=== PATIENT | female | born 1945 | race Caucasian/White ===

== ENCOUNTER → 2018-04-18 | Outpatient (CLI) | payer MEDICARE ==
[~2018-04-18] VITALS: Ht 157.5 cm; Wt 76.5 kg
[~2018-04-18] MED LIST: ACET-784 PO; AMLO-511 PO; ASPI-556 PO; ATOR20TA86 PO; BUME1TAB17 PO; BUPR2TAB3 SL; CALC-1009 PO; CARB200T6 PO; CARV12 PO; CLON.5 PO; CLON1 PO; DIPH25 PO; DULO30CA2 PO; LEVO75 PO; LISI-661 PO; MIRALAX PO; NIFE10 PO
[2018-04-18 12:53] VITALS: BP 122/86
== END | disposition home or self-care (01) ==
LOC: SRCNTR 11:28
PROVIDERS: ATTEND Hospitalist
DX: E03.9 Hypothyroidism, unspecified (principal); I10 Essential (primary) hypertension; F99 Mental disorder, not otherwise specified; E78.5 Hyperlipidemia, unspecified; I25.10 Atherosclerotic heart disease of native coronary artery without angina pectoris
CPT/HCPCS: G0463

== ENCOUNTER 2018-05-15 11:58 | Emergency (ER) | payer MEDICARE ==
[~2018-05-15] VITALS: Ht 157.5 cm; Wt 70.5 kg
[~2018-05-15 11:58] MED LIST changes: -AMLO-511 PO; -BUPR2TAB3 SL; -CARB200T6 PO; -CLON.5 PO; -LEVO75 PO
[2018-05-15] MEDS ORDERED: BUPR2TAB3 SL (12:57)
[2018-05-15 13:25] LABS: BASOPHILS % (AUTO) 0.6 % (0.0-2.0); EOSINOPHILS % (AUTO) 3.9 % (1.0-6.0); HEMATOCRIT 39.8 % (36-46); HEMOGLOBIN 13.3 g/dL (12.0-16.0); LYMPHOCYTES # (AUTO) 3.9 K/uL (1.0-4.8); LYMPHOCYTES % (AUTO) 36.6 % (22.0-44.0); MEAN CORPUSCULAR HEMOGLOBIN 31.3 pg (26.0-34.0); MEAN CORPUSCULAR HGB CONC 33.5 G/dL (31.0-37.0); MEAN CORPUSCULAR VOLUME 94 fL (80-100); MONOCYTES # (AUTO) 0.6 K/uL (0.1-1.0); MONOCYTES % (AUTO) 5.9 % (2.0-9.0); NEUTROPHILS # (AUTO) 5.7 K/uL (1.8-7.7); PLATELET COUNT (AUTO) 205 K/uL (150-450); RED BLOOD CELL COUNT(AUTO) 4.26 MIL/uL (4.00-5.20); RED CELL DISTRIBUTION WIDTH 15.2 % (11.5-14.5)
[2018-05-15] MEDS ORDERED: ClonazePAM 1 MG TABLET PO ONE ×2 (13:30→20:30)
[2018-05-15 13:35] LABS: ANION GAP 11 mmol/L (8-16); CALCIUM, TOTAL 9.9 mg/dL (8.8-10.5); CARBON DIOXIDE 25 mmol/L (22-29); CHLORIDE 99 mmol/L (98-107); CREATININE 0.99 mg/dL (0.60-1.30); GLOMERULAR FILTR. RATE CALC 55 mL/min (>60); GLUCOSE,RANDOM 125 mg/dL (70-110); POTASSIUM 3.9 mmol/L (3.5-5.1); SODIUM SERUM 135 mmol/L (136-145); UREA NITROGEN, BLOOD 17 mg/dL (7-18)
[2018-05-15 13:36] LABS: SALICYLATE 1.7 mg/dL (2.8-20.0)
[2018-05-15 13:41] LABS: ALANINE AMINOTRANSFERASE 16 U/L (12-78); ALBUMIN 4.3 g/dL (3.4-5.0); ALKALINE PHOSPHATASE 105 U/L (46-116); ASPARTATE AMINOTRANSFERASE 14 U/L (15-37); BILIRUBIN,TOTAL 0.6 mg/dL (0.1-1.0); TOTAL PROTEIN, SERUM 8.7 g/dL (6.4-8.2)
[2018-05-15 13:42] LABS: ACETAMINOPHEN < 2 mcg/mL (10-30)
[2018-05-15 15:53] LABS: GLUCOSE,POINT OF CARE 109 MG/DL (70-110)
[2018-05-15 18:26] LABS: APPEARANCE,URINE CLOUDY (CLEAR); BILIRUBIN,URINE PRELIM. POSITIVE (NEGATIVE); GLUCOSE, URINE (UA) NEGATIVE (NEGATIVE); KETONES,URINE >=80 mg/dL (NEGATIVE); LEUKOCYTE ESTERASE ,URINE SMALL (NEGATIVE); NITRATE,URINE NEGATIVE (NEGATIVE); OCCULT BLOOD,URINE NEGATIVE (NEGATIVE); PROTEIN,URINE TRACE (NEGATIVE); UROBILINOGEN,URINE 0.2 mg/dL (<=1.0)
[2018-05-15 18:32] LABS: BACTERIA,URINE Few /HPF (None Seen); RBC,URINE 0-2 /HPF (0-2); SQUAMOUS EPITHELIAL CELL,UR Many /LPF (None Seen)
[2018-05-15 21:12] VITALS: BP 130/74
== END 2018-05-15 21:16 | disposition home or self-care (01) ==
LOC: EMS 12:01
DX: S00.12XA Contusion of left eyelid and periocular area, initial encounter (principal); F13.20 Sedative, hypnotic or anxiolytic dependence, uncomplicated; E03.9 Hypothyroidism, unspecified; Z88.8 Allergy status to other drugs, medicaments and biological substances; Z91.013 Allergy to seafood; Z79.899 Other long term (current) drug therapy; Z79.82 Long term (current) use of aspirin; W19.XXXA Unspecified fall, initial encounter; Y93.01 Activity, walking, marching and hiking; Y92.89 Other specified places as the place of occurrence of the external cause; Y99.8 Other external cause status
CPT/HCPCS: 36415; 70450; 80053; 81001; 82948; 82962; 84484; 85025; 87086; 93005; 99285; G0480; G0481

== ENCOUNTER 2018-06-07 07:15 | Inpatient (IN) | payer MEDICARE ==
[~2018-06-07] VITALS: Ht 154.9 cm; Wt 73.0 kg
[~2018-06-07 07:15] MED LIST changes: -BUME1TAB17 PO; +BUPR2TAB3 SL; -DIPH25 PO; +LEVO75 PO; -MIRALAX PO; -NIFE10 PO
[2018-06-07] MEDS ORDERED: ClonazePAM 1 MG TABLET PO ONE (08:00)
[2018-06-07 08:12] LABS: BASOPHILS % (AUTO) 0.7 % (0.0-2.0); EOSINOPHILS % (AUTO) 2.8 % (1.0-6.0); HEMOGLOBIN 12.3 g/dL (12.0-16.0); LYMPHOCYTES # (AUTO) 4.5 K/uL (1.0-4.8); LYMPHOCYTES % (AUTO) 45.5 % (22.0-44.0); MEAN CORPUSCULAR HEMOGLOBIN 31.9 pg (26.0-34.0); MEAN CORPUSCULAR HGB CONC 34.2 G/dL (31.0-37.0); MEAN CORPUSCULAR VOLUME 93 fL (80-100); MONOCYTES # (AUTO) 0.5 K/uL (0.1-1.0); MONOCYTES % (AUTO) 5.3 % (2.0-9.0); NEUTROPHILS # (AUTO) 4.6 K/uL (1.8-7.7); NEUTROPHILS % (AUTO) 45.7 % (40.0-70.0); PLATELET COUNT (AUTO) 183 K/uL (150-450); RED BLOOD CELL COUNT(AUTO) 3.86 MIL/uL (4.00-5.20)
[2018-06-07 08:25] LABS: ANION GAP 8 mmol/L (8-16); CALCIUM, TOTAL 8.7 mg/dL (8.8-10.5); CARBON DIOXIDE 26 mmol/L (22-29); CHLORIDE 97 mmol/L (98-107); CREATININE 0.78 mg/dL (0.60-1.30); GLOMERULAR FILTR. RATE CALC > 60 mL/min (>60); GLUCOSE,RANDOM 113 mg/dL (70-110); POTASSIUM 3.9 mmol/L (3.5-5.1); SODIUM SERUM 131 mmol/L (136-145); UREA NITROGEN, BLOOD 8 mg/dL (7-18)
[2018-06-07 08:31] LABS: ALANINE AMINOTRANSFERASE 21 U/L (12-78); ALBUMIN 3.7 g/dL (3.4-5.0); ALKALINE PHOSPHATASE 96 U/L (46-116); ASPARTATE AMINOTRANSFERASE 17 U/L (15-37); BILIRUBIN,TOTAL 0.5 mg/dL (0.1-1.0); TOTAL PROTEIN, SERUM 7.4 g/dL (6.4-8.2)
[2018-06-07] MEDS ORDERED: HALOPERIDOL 5 MG TABLET PO PRN (09:15)
[2018-06-07] MEDS ORDERED: ZOLPIDEM TARTRATE 10 MG TABLET PO PRN (09:15)
[2018-06-07] MEDS ORDERED: LORazepam 2 MG TABLET PO PRN (09:15)
[2018-06-07] MEDS ORDERED: KETOROLAC TROMETHAMINE 60 MG/2 ML VIAL IM ONE (10:30)
[2018-06-07 11:01] LABS: AMPHET/METH SCREEN,URINE NEGATIVE (NEGATIVE); BARBITURATE SCREEN, URINE NEGATIVE (NEGATIVE); BENZODIAZEPINES SCREEN,URINE NEGATIVE (NEGATIVE); CANNABINOID SCREEN,URINE NEGATIVE (NEGATIVE); COCAINE SCREEN,URINE NEGATIVE (NEGATIVE); METHADONE SCREEN, URINE NEGATIVE (NEGATIVE); OPIATE SCREEN,URINE NEGATIVE (NEGATIVE); PHENCYCLIDINE SCREEN,URINE NEGATIVE (NEGATIVE)
[2018-06-07] MEDS ORDERED: PETROLATUM,WHITE 71 GM JELLY TP PRN (12:00)
[2018-06-07] MEDS ORDERED: ALBUTEROL SULFATE HFA 90 MCG/PUFF 8 GM INHALER IH PRN (12:00)
[2018-06-07] MEDS ORDERED: CloNIDine HCL 0.1 MG TABLET PO PRN (12:00)
[2018-06-07] MEDS ORDERED: MAG HYDROX/AL HYDROX/SIMETH ES 30 ML SUSPENSION UDCUP PO PRN (12:00)
[2018-06-07] MEDS ORDERED: MAGNESIUM HYDROXIDE SUSPENSION 30 ML UDCUP PO PRN (12:00)
[2018-06-07] MEDS ORDERED: ONDANSETRON HCL 4 MG TABLET PO PRN (12:00)
[2018-06-07] MEDS ORDERED: DOCUSATE SODIUM 100 MG CAPSULE PO PRN (12:00)
[2018-06-07] MEDS ORDERED: GuaiFENesin/D-METHORPHAN [SUGAR-FREE] 200-20MG/10 ML SYRUP UDCUP PO PRN (12:00)
[2018-06-07] MEDS ORDERED: LOPERAMIDE HCL 2 MG CAPSULE PO PRN (12:00)
[2018-06-07] MEDS ORDERED: NICOTINE 14 MG/24 HOUR PATCH TD PRN (12:00)
[2018-06-07 12:45] VITALS: BP 155/110
[2018-06-07] MEDS: LISINOPRIL 20 MG TABLET PO SCH (13:01)
[2018-06-07] MEDS: CARVEDILOL 12.5 MG TABLET PO SCH ×2 (13:01→16:20)
[2018-06-07] MEDS: DULoxetine HCL 60 MG CAPSULE PO SCH (16:20)
[2018-06-07 16:30] VITALS: BP 127/68
[2018-06-07] MEDS ORDERED: CARVEDILOL 12.5 MG TABLET PO SCH (17:00)
[2018-06-07 20:20] VITALS: BP 130/71
[2018-06-07] MEDS: IBUPROFEN 400 MG TABLET PO PRN (20:21)
[2018-06-07] MEDS: ClonazePAM 1 MG TABLET PO SCH (20:21)
[2018-06-07] MEDS: ATORVASTATIN CALCIUM 20 MG TABLET PO SCH (20:21)
[2018-06-08] MEDS: LEVOTHYROXINE SODIUM 75 MCG TABLET PO SCH (06:15)
[2018-06-08 06:46] LABS: BASOPHILS % (AUTO) 0.4 % (0.0-2.0); EOSINOPHILS % (AUTO) 2.8 % (1.0-6.0); HEMATOCRIT 36.4 % (36-46); HEMOGLOBIN 12.1 g/dL (12.0-16.0); LYMPHOCYTES # (AUTO) 5.4 K/uL (1.0-4.8); LYMPHOCYTES % (AUTO) 42.1 % (22.0-44.0); MEAN CORPUSCULAR HEMOGLOBIN 30.9 pg (26.0-34.0); MEAN CORPUSCULAR HGB CONC 33.1 G/dL (31.0-37.0); MEAN CORPUSCULAR VOLUME 93 fL (80-100); MONOCYTES # (AUTO) 0.8 K/uL (0.1-1.0); NEUTROPHILS # (AUTO) 6.2 K/uL (1.8-7.7); NEUTROPHILS % (AUTO) 48.7 % (40.0-70.0); PLATELET COUNT (AUTO) 190 K/uL (150-450); RED CELL DISTRIBUTION WIDTH 15.1 % (11.5-14.5)
[2018-06-08 07:12] LABS: ALANINE AMINOTRANSFERASE 19 U/L (12-78); ALBUMIN 3.5 g/dL (3.4-5.0); ALKALINE PHOSPHATASE 95 U/L (46-116); ANION GAP 6 mmol/L (8-16); ASPARTATE AMINOTRANSFERASE 15 U/L (15-37); BILIRUBIN,TOTAL 0.4 mg/dL (0.1-1.0); CALCIUM, TOTAL 8.8 mg/dL (8.8-10.5); CARBON DIOXIDE 28 mmol/L (22-29); CHLORIDE 98 mmol/L (98-107); CHOL/HDL RATIO 2.6 (3.9-5.7); CHOLESTEROL 141 mg/dL (131-200); CREATININE 0.84 mg/dL (0.60-1.30); FREE T4 (FREE THYROXINE) 0.93 ng/dL (0.76-1.46); GLUCOSE,RANDOM 108 mg/dL (70-110); HDL CHOLESTEROL 54 mg/dL (40-60); HEMOGLOBIN A1C 5.7 % (4.5-6.2); LDL CHOL (CALC.) 67 mg/dL (0-130); SODIUM SERUM 132 mmol/L (136-145); THYROID STIMULATING HORMONE 2.31 uIU/mL (0.36-3.74); TOTAL PROTEIN, SERUM 7.2 g/dL (6.4-8.2); TRIGLYCERIDES 100 mg/dL (15-150); UREA NITROGEN, BLOOD 12 mg/dL (7-18)
[2018-06-08 07:14] LABS: GLOMERULAR FILTR. RATE CALC > 60 mL/min (>60)
[2018-06-08] MEDS: DULoxetine HCL 60 MG CAPSULE PO SCH (08:42)
[2018-06-08] MEDS: ClonazePAM 1 MG TABLET PO SCH ×2 (08:42→21:05)
[2018-06-08] MEDS: ASPIRIN 81 MG CHEWABLE TABLET PO SCH (08:42)
[2018-06-08] MEDS: LISINOPRIL 20 MG TABLET PO SCH (08:42)
[2018-06-08] MEDS: CARVEDILOL 12.5 MG TABLET PO SCH ×2 (08:43→17:30)
[2018-06-08] MEDS ORDERED: LISINOPRIL 20 MG TABLET PO SCH (09:00)
[2018-06-08] MEDS: IBUPROFEN 400 MG TABLET PO PRN ×2 (10:59→21:05)
[2018-06-08 11:01] VITALS: BP 159/100
[2018-06-08] MEDS: AmLODIPine BESYLATE 5 MG TABLET PO SCH (15:18)
[2018-06-08] MEDS: CarBAMazepine 200 MG TABLET PO SCH (17:30)
[2018-06-08] MEDS: CALCIUM OYSTER SHELL 250 MG-VIT D3 125 UNITS TABLET PO SCH (17:30)
[2018-06-08 19:50] VITALS: BP 143/89
[2018-06-08 21:05] VITALS: BP 130/88
[2018-06-08] MEDS: ATORVASTATIN CALCIUM 20 MG TABLET PO SCH (21:05)
[2018-06-09] MEDS: LEVOTHYROXINE SODIUM 75 MCG TABLET PO SCH (06:53)
[2018-06-09 07:20] VITALS: BP 147/104
[2018-06-09] MEDS: DULoxetine HCL 60 MG CAPSULE PO SCH (08:23)
[2018-06-09] MEDS: ClonazePAM 1 MG TABLET PO SCH ×2 (08:24→20:23)
[2018-06-09] MEDS: CALCIUM OYSTER SHELL 250 MG-VIT D3 125 UNITS TABLET PO SCH ×2 (08:24→16:28)
[2018-06-09] MEDS: AmLODIPine BESYLATE 5 MG TABLET PO SCH (08:24)
[2018-06-09] MEDS: CarBAMazepine 200 MG TABLET PO SCH ×2 (08:24→16:28)
[2018-06-09] MEDS: ASPIRIN 81 MG CHEWABLE TABLET PO SCH (08:24)
[2018-06-09] MEDS: LISINOPRIL 20 MG TABLET PO SCH (08:24)
[2018-06-09] MEDS: CARVEDILOL 12.5 MG TABLET PO SCH ×2 (08:24→16:28)
[2018-06-09 09:54] VITALS: BP 153/91
[2018-06-09 11:20] VITALS: BP 131/83
[2018-06-09 15:13] VITALS: BP 138/90
[2018-06-09] MEDS: LOPERAMIDE HCL 2 MG CAPSULE PO PRN (16:30)
[2018-06-09 20:24] VITALS: BP 145/88
[2018-06-09] MEDS: IBUPROFEN 400 MG TABLET PO PRN (20:24)
[2018-06-09] MEDS: ATORVASTATIN CALCIUM 20 MG TABLET PO SCH (20:24)
[2018-06-10] MEDS: LEVOTHYROXINE SODIUM 75 MCG TABLET PO SCH (06:54)
[2018-06-10 07:17] LABS: ANION GAP 10 mmol/L (8-16); CALCIUM, TOTAL 8.7 mg/dL (8.8-10.5); CARBON DIOXIDE 26 mmol/L (22-29); CHLORIDE 101 mmol/L (98-107); CREATININE 0.78 mg/dL (0.60-1.30); GLUCOSE,RANDOM 110 mg/dL (70-110); POTASSIUM 4.1 mmol/L (3.5-5.1); SODIUM SERUM 137 mmol/L (136-145); UREA NITROGEN, BLOOD 16 mg/dL (7-18)
[2018-06-10 07:22] LABS: GLOMERULAR FILTR. RATE CALC > 60 mL/min (>60)
[2018-06-10 09:06] VITALS: BP 152/93
[2018-06-10] MEDS: CarBAMazepine 200 MG TABLET PO SCH ×2 (09:28→16:40)
[2018-06-10] MEDS: AmLODIPine BESYLATE 5 MG TABLET PO SCH (09:28)
[2018-06-10] MEDS: DULoxetine HCL 60 MG CAPSULE PO SCH (09:29)
[2018-06-10] MEDS: LISINOPRIL 20 MG TABLET PO SCH (09:29)
[2018-06-10] MEDS: CARVEDILOL 12.5 MG TABLET PO SCH ×2 (09:29→16:40)
[2018-06-10] MEDS: ASPIRIN 81 MG CHEWABLE TABLET PO SCH (09:29)
[2018-06-10] MEDS: ClonazePAM 1 MG TABLET PO SCH ×2 (09:29→20:09)
[2018-06-10] MEDS: CALCIUM OYSTER SHELL 250 MG-VIT D3 125 UNITS TABLET PO SCH ×2 (09:30→16:40)
[2018-06-10] MEDS: ACETAMINOPHEN 325 MG TABLET PO PRN (09:32)
[2018-06-10 09:34] VITALS: BP 134/74
[2018-06-10 10:35] VITALS: BP 130/69
[2018-06-10 16:30] VITALS: BP 132/97
[2018-06-10] MEDS: IBUPROFEN 400 MG TABLET PO PRN (16:41)
[2018-06-10] MEDS: ATORVASTATIN CALCIUM 20 MG TABLET PO SCH (20:09)
[2018-06-10 22:00] VITALS: BP 130/85
[2018-06-10] MEDS: TraMADol HCL 50 MG TABLET PO PRN (22:08)
[2018-06-11 02:40] VITALS: BP 132/86
[2018-06-11] MEDS: ACETAMINOPHEN 325 MG TABLET PO PRN (02:40)
[2018-06-11] MEDS: TraMADol HCL 50 MG TABLET PO PRN ×2 (05:36→11:45)
[2018-06-11] MEDS: LEVOTHYROXINE SODIUM 75 MCG TABLET PO SCH (06:39)
[2018-06-11 08:00] VITALS: BP 158/102
[2018-06-11] MEDS: DULoxetine HCL 60 MG CAPSULE PO SCH (09:25)
[2018-06-11] MEDS: ClonazePAM 1 MG TABLET PO SCH ×2 (09:25→20:07)
[2018-06-11] MEDS: LISINOPRIL 20 MG TABLET PO SCH (09:25)
[2018-06-11] MEDS: ASPIRIN 81 MG CHEWABLE TABLET PO SCH (09:25)
[2018-06-11] MEDS: AmLODIPine BESYLATE 5 MG TABLET PO SCH (09:25)
[2018-06-11] MEDS: CARVEDILOL 12.5 MG TABLET PO SCH ×2 (09:26→16:39)
[2018-06-11] MEDS: CALCIUM OYSTER SHELL 250 MG-VIT D3 125 UNITS TABLET PO SCH ×2 (09:26→16:39)
[2018-06-11] MEDS: CarBAMazepine 200 MG TABLET PO SCH ×2 (09:26→16:39)
[2018-06-11 10:45] VITALS: BP 139/90
[2018-06-11 11:45] VITALS: BP 140/88
[2018-06-11 16:52] VITALS: BP 135/77
[2018-06-11] MEDS: ATORVASTATIN CALCIUM 20 MG TABLET PO SCH (20:07)
[2018-06-12 00:52] VITALS: BP 112/85
[2018-06-12] MEDS: TraMADol HCL 50 MG TABLET PO PRN ×3 (00:52→17:04)
[2018-06-12] MEDS: LEVOTHYROXINE SODIUM 75 MCG TABLET PO SCH (06:55)
[2018-06-12] MEDS: AmLODIPine BESYLATE 5 MG TABLET PO SCH (09:10)
[2018-06-12] MEDS: ASPIRIN 81 MG CHEWABLE TABLET PO SCH (09:10)
[2018-06-12] MEDS: ClonazePAM 1 MG TABLET PO SCH ×3 (09:10→20:12)
[2018-06-12] MEDS: DULoxetine HCL 60 MG CAPSULE PO SCH (09:10)
[2018-06-12] MEDS: CarBAMazepine 200 MG TABLET PO SCH ×2 (09:10→17:03)
[2018-06-12] MEDS: CALCIUM OYSTER SHELL 250 MG-VIT D3 125 UNITS TABLET PO SCH ×2 (09:11→17:03)
[2018-06-12] MEDS: LISINOPRIL 20 MG TABLET PO SCH (09:11)
[2018-06-12] MEDS: CARVEDILOL 12.5 MG TABLET PO SCH ×2 (09:11→17:03)
[2018-06-12 09:13] VITALS: BP 141/97
[2018-06-12 10:13] VITALS: BP 116/87
[2018-06-12] MEDS: LOPERAMIDE HCL 2 MG CAPSULE PO PRN (15:14)
[2018-06-12 17:04] VITALS: BP 129/81
[2018-06-12] MEDS: ATORVASTATIN CALCIUM 20 MG TABLET PO SCH (20:12)
[2018-06-13] VITALS (7 sets, daily range): BP systolic 102–137; BP diastolic 68–93
[2018-06-13] MEDS: TraMADol HCL 50 MG TABLET PO PRN ×3 (02:47→16:25)
[2018-06-13] MEDS: LEVOTHYROXINE SODIUM 75 MCG TABLET PO SCH (07:03)
[2018-06-13 07:04] LABS: BASOPHILS % (AUTO) 0.5 % (0.0-2.0); EOSINOPHILS % (AUTO) 3.7 % (1.0-6.0); HEMATOCRIT 37.3 % (36-46); HEMOGLOBIN 12.5 g/dL (12.0-16.0); LYMPHOCYTES # (AUTO) 5.6 K/uL (1.0-4.8); LYMPHOCYTES % (AUTO) 48.6 % (22.0-44.0); MEAN CORPUSCULAR HEMOGLOBIN 31.7 pg (26.0-34.0); MEAN CORPUSCULAR HGB CONC 33.6 G/dL (31.0-37.0); MEAN CORPUSCULAR VOLUME 94 fL (80-100); MONOCYTES # (AUTO) 0.9 K/uL (0.1-1.0); MONOCYTES % (AUTO) 7.4 % (2.0-9.0); NEUTROPHILS # (AUTO) 4.6 K/uL (1.8-7.7); NEUTROPHILS % (AUTO) 39.8 % (40.0-70.0); PLATELET COUNT (AUTO) 209 K/uL (150-450); RED BLOOD CELL COUNT(AUTO) 3.95 MIL/uL (4.00-5.20); RED CELL DISTRIBUTION WIDTH 15.5 % (11.5-14.5)
[2018-06-13] MEDS: ClonazePAM 1 MG TABLET PO SCH ×3 (09:00→20:05)
[2018-06-13] MEDS: ASPIRIN 81 MG CHEWABLE TABLET PO SCH (09:00)
[2018-06-13] MEDS: CarBAMazepine 200 MG TABLET PO SCH ×2 (09:00→16:22)
[2018-06-13] MEDS: DULoxetine HCL 60 MG CAPSULE PO SCH (09:00)
[2018-06-13] MEDS: CARVEDILOL 12.5 MG TABLET PO SCH ×2 (09:01→16:22)
[2018-06-13] MEDS: AmLODIPine BESYLATE 5 MG TABLET PO SCH (09:01)
[2018-06-13] MEDS: CALCIUM OYSTER SHELL 250 MG-VIT D3 125 UNITS TABLET PO SCH ×2 (09:01→16:22)
[2018-06-13] MEDS: LISINOPRIL 20 MG TABLET PO SCH (09:01)
[2018-06-13] MEDS: IBUPROFEN 400 MG TABLET PO PRN (15:06)
[2018-06-13] MEDS: ATORVASTATIN CALCIUM 20 MG TABLET PO SCH (20:05)
[2018-06-14] VITALS (8 sets, daily range): BP systolic 101–141; BP diastolic 66–95
[2018-06-14] MEDS: TraMADol HCL 50 MG TABLET PO PRN ×3 (01:21→14:27)
[2018-06-14] MEDS: IBUPROFEN 400 MG TABLET PO PRN ×2 (05:43→12:55)
[2018-06-14] MEDS: LEVOTHYROXINE SODIUM 75 MCG TABLET PO SCH (06:57)
[2018-06-14] MEDS: LISINOPRIL 20 MG TABLET PO SCH (08:18)
[2018-06-14] MEDS: DULoxetine HCL 60 MG CAPSULE PO SCH (08:18)
[2018-06-14] MEDS: ClonazePAM 1 MG TABLET PO SCH (08:18)
[2018-06-14] MEDS: CALCIUM OYSTER SHELL 250 MG-VIT D3 125 UNITS TABLET PO SCH (08:18)
[2018-06-14] MEDS: CARVEDILOL 12.5 MG TABLET PO SCH (08:18)
[2018-06-14] MEDS: AmLODIPine BESYLATE 5 MG TABLET PO SCH (08:18)
[2018-06-14] MEDS: ASPIRIN 81 MG CHEWABLE TABLET PO SCH (08:18)
[2018-06-14] MEDS: CarBAMazepine 200 MG TABLET PO SCH (08:18)
[2018-06-14] MEDS ORDERED: AMLO-511 PO (10:51)
[2018-06-14] MEDS ORDERED: CARB200T6 PO (10:51)
== END 2018-06-14 15:30 | disposition home or self-care (01) | DRG 885 ==
LOC: EMS 07:15 → 3EI 10:19
DX: F33.2 Major depressive disorder, recurrent severe without psychotic features (principal); R45.851 Suicidal ideations; E87.1 Hypo-osmolality and hyponatremia; D72.829 Elevated white blood cell count, unspecified; E03.9 Hypothyroidism, unspecified; E78.5 Hyperlipidemia, unspecified; G40.909 Epilepsy, unspecified, not intractable, without status epilepticus; G89.29 Other chronic pain; M54.9 Dorsalgia, unspecified; R19.7 Diarrhea, unspecified; I10 Essential (primary) hypertension; M41.9 Scoliosis, unspecified; M81.0 Age-related osteoporosis without current pathological fracture; Z87.891 Personal history of nicotine dependence; Z91.013 Allergy to seafood; Z79.899 Other long term (current) drug therapy; Z79.890 Hormone replacement therapy; Z91.5 Personal history of self-harm
CPT/HCPCS: 83036; 84436; 84439; 84443; 87045; 87081; 87427; G0480; J1885

== ENCOUNTER 2018-07-19 09:17 | Emergency (ER) | payer BC, MEDICARE ==
[~2018-07-19] VITALS: Ht 162.6 cm; Wt 72.7 kg
[~2018-07-19 09:17] MED LIST changes: -ACET-784 PO; +AMLO-511 PO; -BUPR2TAB3 SL; +CARB200T6 PO
[2018-07-19] MEDS ORDERED: KETOROLAC TROMETHAMINE 60 MG/2 ML VIAL IM ONE (10:30)
[2018-07-19] MEDS ORDERED: DULO60CA44 PO (12:05)
[2018-07-19] MEDS ORDERED: LISI-662 PO (12:05)
[2018-07-19] MEDS ORDERED: ClonazePAM 1 MG TABLET PO ONE (12:15)
[2018-07-19 12:47] VITALS: BP 156/89
== END 2018-07-19 13:12 | disposition home or self-care (01) ==
LOC: EMS 09:18
DX: R51 Headache (principal); T42.4X5A Adverse effect of benzodiazepines, initial encounter; E78.00 Pure hypercholesterolemia, unspecified; I10 Essential (primary) hypertension; E03.9 Hypothyroidism, unspecified; F32.9 Major depressive disorder, single episode, unspecified; Z91.013 Allergy to seafood; Z79.82 Long term (current) use of aspirin; Z79.899 Other long term (current) drug therapy; Z87.891 Personal history of nicotine dependence; Y92.89 Other specified places as the place of occurrence of the external cause
CPT/HCPCS: 96372; 99283; J1885

== ENCOUNTER → 2018-07-25 | Outpatient (CLI) | payer MEDICARE ==
[~2018-07-25] VITALS: Ht 152.4 cm; Wt 74.0 kg
[~2018-07-25] MED LIST changes: +ACET-784 PO; +CLON.5 PO; +DULO60CA44 PO; +IBUP-2354 PO; -LISI-661 PO; +LISI-662 PO
[2018-07-25 08:29] VITALS: BP 132/88
== END | disposition home or self-care (01) ==
LOC: SRCNTR 08:23
PROVIDERS: ATTEND Hospitalist
DX: I10 Essential (primary) hypertension (principal); E78.5 Hyperlipidemia, unspecified; G89.4 Chronic pain syndrome; E03.9 Hypothyroidism, unspecified; I25.10 Atherosclerotic heart disease of native coronary artery without angina pectoris; G40.909 Epilepsy, unspecified, not intractable, without status epilepticus; M41.9 Scoliosis, unspecified; M81.0 Age-related osteoporosis without current pathological fracture; F99 Mental disorder, not otherwise specified; R53.1 Weakness
CPT/HCPCS: G0463

== ENCOUNTER 2018-08-20 17:19 | Emergency (ER) | payer MEDICARE ==
[~2018-08-20] VITALS: Ht 154.9 cm; Wt 72.7 kg
[~2018-08-20 17:19] MED LIST changes: -AMLO-511 PO; -CLON.5 PO; -DULO60CA44 PO
[2018-08-20] MEDS ORDERED: LORazepam 2 MG TABLET PO ONE (17:45)
[2018-08-20] MEDS ORDERED: ACETAMINOPHEN 500 MG TABLET PO ONE (18:00)
[2018-08-20 18:04] LABS: BASOPHILS % (AUTO) 1.1 % (0.0-2.0); EOSINOPHILS % (AUTO) 1.4 % (1.0-6.0); HEMATOCRIT 38.2 % (36-46); LYMPHOCYTES # (AUTO) 5.9 K/uL (1.0-4.8); LYMPHOCYTES % (AUTO) 46.9 % (22.0-44.0); MEAN CORPUSCULAR HEMOGLOBIN 32.1 pg (26.0-34.0); MEAN CORPUSCULAR VOLUME 94 fL (80-100); MONOCYTES # (AUTO) 0.7 K/uL (0.1-1.0); MONOCYTES % (AUTO) 5.4 % (2.0-9.0); NEUTROPHILS # (AUTO) 5.6 K/uL (1.8-7.7); NEUTROPHILS % (AUTO) 45.2 % (40.0-70.0); PLATELET COUNT (AUTO) 211 K/uL (150-450); RED BLOOD CELL COUNT(AUTO) 4.05 MIL/uL (4.00-5.20); RED CELL DISTRIBUTION WIDTH 12.8 % (11.5-14.5)
[2018-08-20 18:36] LABS: ANION GAP 13 mmol/L (8-16); CALCIUM, TOTAL 9.5 mg/dL (8.8-10.5); CARBON DIOXIDE 20 mmol/L (22-29); CHLORIDE 97 mmol/L (98-107); CREATININE 0.86 mg/dL (0.60-1.30); GLUCOSE,RANDOM 116 mg/dL (70-110); POTASSIUM 3.2 mmol/L (3.5-5.1); SODIUM SERUM 130 mmol/L (136-145); UREA NITROGEN, BLOOD 17 mg/dL (7-18)
[2018-08-20 18:37] LABS: GLOMERULAR FILTR. RATE CALC > 60 mL/min (>60)
[2018-08-20 18:42] LABS: ALANINE AMINOTRANSFERASE 13 U/L (12-78); ALBUMIN 3.8 g/dL (3.4-5.0); ALKALINE PHOSPHATASE 99 U/L (46-116); ASPARTATE AMINOTRANSFERASE 18 U/L (15-37); BILIRUBIN,TOTAL 0.5 mg/dL (0.1-1.0); CARBAMAZEPINE (TEGRETOL) 11.6 mcg/mL (4.0-12.0); TOTAL PROTEIN, SERUM 7.5 g/dL (6.4-8.2)
[2018-08-20 19:18] VITALS: BP 165/100
[2018-08-22] MEDS ORDERED: LISI-662 PO (09:21)
[2018-08-22] MEDS ORDERED: DULO60CA44 PO (09:21)
[2018-08-22] MEDS ORDERED: BUME1TAB17 PO (09:21)
[2018-08-22] MEDS ORDERED: NIFE10 PO (09:21)
== END 2018-08-20 19:58 | disposition home or self-care (01) ==
LOC: EMS 17:21
DX: F41.9 Anxiety disorder, unspecified (principal); R07.89 Other chest pain; R25.1 Tremor, unspecified; F13.20 Sedative, hypnotic or anxiolytic dependence, uncomplicated; F11.90 Opioid use, unspecified, uncomplicated; I25.10 Atherosclerotic heart disease of native coronary artery without angina pectoris; F32.9 Major depressive disorder, single episode, unspecified; E78.00 Pure hypercholesterolemia, unspecified; I10 Essential (primary) hypertension; E03.9 Hypothyroidism, unspecified; G89.29 Other chronic pain; Z87.891 Personal history of nicotine dependence; Z79.82 Long term (current) use of aspirin; Z88.8 Allergy status to other drugs, medicaments and biological substances; Z91.013 Allergy to seafood; Z79.899 Other long term (current) drug therapy
CPT/HCPCS: 93005

== ENCOUNTER → 2018-08-22 | Outpatient (CLI) | payer MEDICARE ==
[~2018-08-22] VITALS: Ht 154.9 cm; Wt 74.5 kg
[~2018-08-22] MED LIST changes: +BUME1TAB17 PO; +DULO60CA44 PO; +NIFE10 PO
[2018-08-22 09:22] VITALS: BP 99/65
== END | disposition home or self-care (01) ==
LOC: SRCNTR 09:05
PROVIDERS: ATTEND Hospitalist
DX: I10 Essential (primary) hypertension (principal); E03.9 Hypothyroidism, unspecified; G89.4 Chronic pain syndrome; F41.1 Generalized anxiety disorder
CPT/HCPCS: G0463

== ENCOUNTER → 2018-09-19 | Outpatient (CLI) | payer MEDICARE ==
[~2018-09-19] VITALS: Ht 154.9 cm; Wt 75.0 kg
[~2018-09-19] MED LIST changes: -ACET-784 PO; -DULO30CA2 PO
[2018-09-19 08:27] VITALS: BP 134/97
== END | disposition home or self-care (01) ==
LOC: SRCNTR 08:26
PROVIDERS: ATTEND Hospitalist
DX: I25.10 Atherosclerotic heart disease of native coronary artery without angina pectoris (principal); I10 Essential (primary) hypertension; E78.5 Hyperlipidemia, unspecified; E03.9 Hypothyroidism, unspecified; G89.4 Chronic pain syndrome; F41.1 Generalized anxiety disorder; R53.1 Weakness; G40.909 Epilepsy, unspecified, not intractable, without status epilepticus
CPT/HCPCS: G0463

== ENCOUNTER 2018-10-11 19:02 | Emergency (ER) | payer MEDICARE ==
[~2018-10-11] VITALS: Ht 165.1 cm; Wt 68.2 kg
[2018-10-11 19:47] LABS: BASOPHILS % (AUTO) 0.6 % (0.0-2.0); EOSINOPHILS % (AUTO) 1.5 % (1.0-6.0); HEMATOCRIT 37.5 % (36-46); HEMOGLOBIN 12.9 g/dL (12.0-16.0); LYMPHOCYTES # (AUTO) 5.1 K/uL (1.0-4.8); LYMPHOCYTES % (AUTO) 38.8 % (22.0-44.0); MEAN CORPUSCULAR HEMOGLOBIN 32.4 pg (26.0-34.0); MEAN CORPUSCULAR HGB CONC 34.3 G/dL (31.0-37.0); MEAN CORPUSCULAR VOLUME 95 fL (80-100); MONOCYTES # (AUTO) 0.8 K/uL (0.1-1.0); MONOCYTES % (AUTO) 6.3 % (2.0-9.0); NEUTROPHILS % (AUTO) 52.8 % (40.0-70.0); PLATELET COUNT (AUTO) 224 K/uL (150-450); RED BLOOD CELL COUNT(AUTO) 3.97 MIL/uL (4.00-5.20); RED CELL DISTRIBUTION WIDTH 13.5 % (11.5-14.5)
[2018-10-11 19:59] LABS: ANION GAP 12 mmol/L (8-16); CALCIUM, TOTAL 9.5 mg/dL (8.8-10.5); CARBON DIOXIDE 22 mmol/L (22-29); CHLORIDE 92 mmol/L (98-107); CREATININE 0.78 mg/dL (0.60-1.30); GLUCOSE,RANDOM 120 mg/dL (70-110); POTASSIUM 3.8 mmol/L (3.5-5.1); SODIUM SERUM 126 mmol/L (136-145); UREA NITROGEN, BLOOD 14 mg/dL (7-18)
[2018-10-11 20:00] LABS: GLOMERULAR FILTR. RATE CALC > 60 mL/min (>60)
[2018-10-11 20:05] LABS: ALANINE AMINOTRANSFERASE 14 U/L (12-78); ALKALINE PHOSPHATASE 88 U/L (46-116); ASPARTATE AMINOTRANSFERASE 15 U/L (15-37); BILIRUBIN,TOTAL 0.7 mg/dL (0.1-1.0); TOTAL PROTEIN, SERUM 7.4 g/dL (6.4-8.2)
[2018-10-11] MEDS ORDERED: CarBAMazepine 200 MG TABLET PO ONE (20:45)
[2018-10-11] MEDS ORDERED: ClonazePAM 1 MG TABLET PO ONE (20:45)
[2018-10-11 22:27] VITALS: BP 123/73
== END 2018-10-11 23:25 | disposition home or self-care (01) ==
LOC: EMS 19:05
DX: G40.909 Epilepsy, unspecified, not intractable, without status epilepticus (principal); E78.00 Pure hypercholesterolemia, unspecified; I25.10 Atherosclerotic heart disease of native coronary artery without angina pectoris; I10 Essential (primary) hypertension; E03.9 Hypothyroidism, unspecified; F41.9 Anxiety disorder, unspecified; F32.9 Major depressive disorder, single episode, unspecified; Z95.5 Presence of coronary angioplasty implant and graft; Z87.891 Personal history of nicotine dependence; Z79.82 Long term (current) use of aspirin; Z91.013 Allergy to seafood; Z91.041 Radiographic dye allergy status; Z88.8 Allergy status to other drugs, medicaments and biological substances; Z79.899 Other long term (current) drug therapy; Z98.890 Other specified postprocedural states
CPT/HCPCS: 36415; 80053; 85025; 99283; G0480

== ENCOUNTER 2018-10-17 08:51 | Emergency (ER) | payer MEDICARE ==
[~2018-10-17] VITALS: Ht 154.9 cm; Wt 77.3 kg
[2018-10-17] MEDS ORDERED: LORazepam 2 MG/ML VIAL IVP ONE (11:15)
[2018-10-17] MEDS ORDERED: SODIUM CHLORIDE 0.9% 1,000 ML IV ONE ×2 (11:15→13:15)
[2018-10-17 11:41] LABS: BASOPHILS % (AUTO) 0.8 % (0.0-2.0); EOSINOPHILS % (AUTO) 2.6 % (1.0-6.0); HEMATOCRIT 38.4 % (36-46); HEMOGLOBIN 12.8 g/dL (12.0-16.0); LYMPHOCYTES # (AUTO) 3.8 K/uL (1.0-4.8); LYMPHOCYTES % (AUTO) 38.8 % (22.0-44.0); MEAN CORPUSCULAR HEMOGLOBIN 32.4 pg (26.0-34.0); MEAN CORPUSCULAR HGB CONC 33.3 G/dL (31.0-37.0); MEAN CORPUSCULAR VOLUME 97 fL (80-100); MONOCYTES # (AUTO) 0.6 K/uL (0.1-1.0); MONOCYTES % (AUTO) 5.8 % (2.0-9.0); NEUTROPHILS # (AUTO) 5.1 K/uL (1.8-7.7); PLATELET COUNT (AUTO) 201 K/uL (150-450); RED BLOOD CELL COUNT(AUTO) 3.95 MIL/uL (4.00-5.20); RED CELL DISTRIBUTION WIDTH 13.5 % (11.5-14.5)
[2018-10-17 11:53] LABS: CALCIUM, TOTAL 9.5 mg/dL (8.8-10.5); CREATININE 0.94 mg/dL (0.60-1.30); POTASSIUM 3.8 mmol/L (3.5-5.1)
[2018-10-17 11:57] LABS: CARBAMAZEPINE (TEGRETOL) 4.5 mcg/mL (4.0-12.0)
[2018-10-17 13:41] LABS: APPEARANCE,URINE CLOUDY (CLEAR); BILIRUBIN,URINE NEGATIVE (NEGATIVE); GLUCOSE, URINE (UA) NEGATIVE (NEGATIVE); KETONES,URINE NEGATIVE (NEGATIVE); LEUKOCYTE ESTERASE ,URINE SMALL (NEGATIVE); NITRATE,URINE NEGATIVE (NEGATIVE); OCCULT BLOOD,URINE NEGATIVE (NEGATIVE); PROTEIN,URINE NEGATIVE (NEGATIVE); UROBILINOGEN,URINE 0.2 mg/dL (<=1.0)
[2018-10-17 13:46] LABS: AMPHET/METH SCREEN,URINE NEGATIVE (NEGATIVE); BARBITURATE SCREEN, URINE NEGATIVE (NEGATIVE); BENZODIAZEPINES SCREEN,URINE NEGATIVE (NEGATIVE); CANNABINOID SCREEN,URINE NEGATIVE (NEGATIVE); COCAINE SCREEN,URINE NEGATIVE (NEGATIVE); METHADONE SCREEN, URINE NEGATIVE (NEGATIVE); OPIATE SCREEN,URINE NEGATIVE (NEGATIVE); PHENCYCLIDINE SCREEN,URINE NEGATIVE (NEGATIVE)
[2018-10-17 13:53] LABS: AMORPHOUS SEDIMENT,UR Few /LPF (None Seen); BACTERIA,URINE Moderate /HPF (None Seen); RBC,URINE 0-2 /HPF (0-2); SQUAMOUS EPITHELIAL CELL,UR Few /LPF (None Seen)
[2018-10-17 15:17] VITALS: BP 150/90
== END 2018-10-17 15:52 | disposition home or self-care (01) ==
LOC: EMS 08:51
DX: R53.1 Weakness (principal); N39.0 Urinary tract infection, site not specified; F41.9 Anxiety disorder, unspecified; E78.00 Pure hypercholesterolemia, unspecified; E03.9 Hypothyroidism, unspecified; I10 Essential (primary) hypertension; I25.10 Atherosclerotic heart disease of native coronary artery without angina pectoris; F13.20 Sedative, hypnotic or anxiolytic dependence, uncomplicated; Z91.013 Allergy to seafood; Z91.041 Radiographic dye allergy status; Z88.8 Allergy status to other drugs, medicaments and biological substances; Z95.5 Presence of coronary angioplasty implant and graft; Z98.890 Other specified postprocedural states
CPT/HCPCS: 36415; 80048; 80156; 80307; 81001; 85025; 87086; 93005; 96374; 99284; J2060; J7030

== ENCOUNTER → 2018-10-17 | Outpatient (CLI) | payer MEDICARE ==
[2018-10-17 09:33] VITALS: BP 54/33
== END | disposition home or self-care (01) ==
LOC: SRCNTR 08:33
PROVIDERS: ATTEND Hospitalist
DX: I95.9 Hypotension, unspecified (principal)
CPT/HCPCS: G0463

== ENCOUNTER 2022-06-29 09:20 | Inpatient (IN) | payer MEDICARE, MEDICAID ==
[~2022-06-29] VITALS: Ht 167.6 cm; Wt 66.1 kg
[~2022-06-29 09:20] MED LIST changes: -BUME1TAB17 PO; +BUME1TAB34 PO; +CLON-595 PO; -CLON1 PO; +DULO-113 PO; -DULO60CA44 PO; -IBUP-2354 PO; +IBUP-45 PO; -LISI-662 PO; +LISI-894 PO; -NIFE10 PO; +NIFE10CA50 PO
[2022-06-29] MEDS ORDERED: LevETIRAcetam 1,000 MG in DEXTROSE 5%-WATER 100 ML IV ONE (09:30)
[2022-06-29 10:33] LABS: BASOPHILS % (AUTO) 0.5 % (0.0-2.0); EOSINOPHILS % (AUTO) 0.2 % (1.0-6.0); HEMATOCRIT 38.4 % (36-46); LYMPHOCYTES # (AUTO) 4.3 K/uL (1.0-4.8); LYMPHOCYTES % (AUTO) 27.6 % (22.0-44.0); MEAN CORPUSCULAR HEMOGLOBIN 32.1 pg (26.0-34.0); MEAN CORPUSCULAR HGB CONC 33.8 G/dL (31.0-37.0); MEAN CORPUSCULAR VOLUME 95 fL (80-100); MONOCYTES # (AUTO) 0.9 K/uL (0.1-1.0); MONOCYTES % (AUTO) 5.7 % (2.0-9.0); NEUTROPHILS # (AUTO) 10.4 K/uL (1.8-7.7); PLATELET COUNT (AUTO) 214 K/uL (150-450); RED BLOOD CELL COUNT(AUTO) 4.05 MIL/uL (4.00-5.20); RED CELL DISTRIBUTION WIDTH 13.8 % (11.5-14.5)
[2022-06-29 10:54] LABS: B-TYPE NATRIURETIC PEPTIDE 54 pg/mL (0-100)
[2022-06-29 11:28] LABS: ALANINE AMINOTRANSFERASE 17 U/L (12-78); ALBUMIN 4.1 g/dL (3.4-5.0); ALKALINE PHOSPHATASE 124 U/L (46-116); ANION GAP 10 mmol/L (8-16); ASPARTATE AMINOTRANSFERASE 24 U/L (15-37); BILIRUBIN,TOTAL 0.9 mg/dL (0.1-1.0); CALCIUM, TOTAL 9.8 mg/dL (8.8-10.5); CARBON DIOXIDE 26 mmol/L (22-29); CHLORIDE 97 mmol/L (98-107); CREATINE KINASE, TOTAL ONLY 296 U/L (26-192); GLUCOSE,RANDOM 128 mg/dL (70-110); SODIUM SERUM 133 mmol/L (136-145); TOTAL PROTEIN, SERUM 8.3 g/dL (6.4-8.2); UREA NITROGEN, BLOOD 25 mg/dL (7-18)
[2022-06-29 11:29] LABS: GLOMERULAR FILTR. RATE CALC 43 mL/min (>60); POTASSIUM 2.8 mmol/L (3.5-5.1)
[2022-06-29 11:33] LABS: APPEARANCE,URINE HAZY (CLEAR); BILIRUBIN,URINE NEGATIVE (NEGATIVE); GLUCOSE, URINE (UA) NEGATIVE (NEGATIVE); KETONES,URINE 40-60 mg/dL (NEGATIVE); LEUKOCYTE ESTERASE ,URINE NEGATIVE (NEGATIVE); NITRATE,URINE NEGATIVE (NEGATIVE); OCCULT BLOOD,URINE SMALL (NEGATIVE); PH,URINE 5.5 (5.0-8.0); PROTEIN,URINE 100-200,SEE CONFIRM mg/dL (NEGATIVE); SPECIFIC GRAVITIY, URINE 1.024 (1.003-1.030); UROBILINOGEN,URINE <=1.0 mg/dL (<=1.0)
[2022-06-29 11:53] LABS: BACTERIA,URINE Many /HPF (None Seen); SQUAMOUS EPITHELIAL CELL,UR Few /LPF (None Seen); SULFOSALICYLIC ACID,URINE 2+ (Negative); WBC,URINE None Seen /HPF (0-5)
[2022-06-29] MEDS: POTASSIUM CHLORIDE 20 MEQ ER TABLET PO PRN ×2 (11:59→21:56)
[2022-06-29] MEDS ORDERED: SODIUM CHLORIDE 0.9% 1,000 ML ONE (12:01)
[2022-06-29] MEDS: POTASSIUM CHL 10 MEQ/WATER 50 ML IV PRN ×2 (12:05→13:59)
[2022-06-29 12:11] LABS: PHOSPHORUS 3.3 mg/dL (2.5-4.9)
[2022-06-29] MEDS ORDERED: 0.9% SODIUM CHLORIDE 10 ML SYRINGE IVP PRN ×2 (12:30→13:30)
[2022-06-29] MEDS ORDERED: ACETAMINOPHEN 325 MG TABLET PO PRN (12:30)
[2022-06-29] MEDS ORDERED: ONDANSETRON HCL 4 MG/2 ML VIAL IVP PRN ×2 (12:30→13:30)
[2022-06-29] MEDS ORDERED: IPRATROPIUM BROMIDE 0.5 MG/2.5 ML NEB SOLUTION NEB PRN (13:30)
[2022-06-29] MEDS ORDERED: ALBUTEROL SULFATE 2.5 MG/0.5 ML NEB SOLUTION NEB PRN (13:30)
[2022-06-29] MEDS ORDERED: HydrALAZINE HCL 20 MG/ML VIAL IVP PRN (13:45)
[2022-06-29 14:27] LABS: FREE T4 (FREE THYROXINE) 1.77 ng/dL (0.76-1.46); THYROID STIMULATING HORMONE 3.81 uIU/mL (0.36-3.74)
[2022-06-29 17:31] LABS: CALCIUM, TOTAL 9.5 mg/dL (8.8-10.5); CREATININE 0.91 mg/dL (0.60-1.30); POTASSIUM 3.3 mmol/L (3.5-5.1)
[2022-06-29 20:07] LABS: COVID AG,FIA SOURCE NASAL SWAB
[2022-06-29] MEDS: ATORVASTATIN CALCIUM 20 MG TABLET PO SCH (20:18)
[2022-06-29] MEDS: ACETAMINOPHEN 325 MG TABLET PO PRN ×2 (20:19→21:57)
[2022-06-29] MEDS ORDERED: [UNRECOGNIZED DRUG - OTHER] PO SCH (21:00)
[2022-06-29 21:45] VITALS: BP 145/97
[2022-06-29] MEDS ORDERED: SODIUM CHLORIDE 0.9% 500 ML IV ONE (21:52)
[2022-06-29] MEDS: CARVEDILOL 12.5 MG TABLET PO SCH (21:56)
[2022-06-29] MEDS: LevETIRAcetam 500 MG in DEXTROSE 5%-WATER 100 ML IV SCH (21:57)
[2022-06-30] VITALS (7 sets, daily range): BP systolic 91–143; BP diastolic 57–91
[2022-06-30] MEDS: LEVOTHYROXINE SODIUM 75 MCG TABLET PO SCH (06:22)
[2022-06-30 06:34] LABS: BASOPHILS % (AUTO) 0.9 % (0.0-2.0); EOSINOPHILS % (AUTO) 1.4 % (1.0-6.0); HEMATOCRIT 37.5 % (36-46); HEMOGLOBIN 12.6 g/dL (12.0-16.0); LYMPHOCYTES # (AUTO) 7.4 K/uL (1.0-4.8); LYMPHOCYTES % (AUTO) 50.2 % (22.0-44.0); MEAN CORPUSCULAR HGB CONC 33.7 G/dL (31.0-37.0); MEAN CORPUSCULAR VOLUME 95 fL (80-100); MONOCYTES # (AUTO) 1.1 K/uL (0.1-1.0); MONOCYTES % (AUTO) 7.1 % (2.0-9.0); NEUTROPHILS % (AUTO) 40.4 % (40.0-70.0); PLATELET COUNT (AUTO) 194 K/uL (150-450); RED BLOOD CELL COUNT(AUTO) 3.95 MIL/uL (4.00-5.20)
[2022-06-30] MEDS: ACETAMINOPHEN 325 MG TABLET PO PRN (07:57)
[2022-06-30] MEDS: CARVEDILOL 12.5 MG TABLET PO SCH ×2 (07:58→21:00)
[2022-06-30] MEDS: LISINOPRIL 20 MG TABLET PO SCH (07:58)
[2022-06-30] MEDS: PANTOPRAZOLE SODIUM 40 MG/VIAL IVP SCH (07:58)
[2022-06-30] MEDS: ASPIRIN 81 MG DR TABLET PO SCH (07:59)
[2022-06-30] MEDS: LevETIRAcetam 500 MG in DEXTROSE 5%-WATER 100 ML IV SCH ×2 (10:07→21:08)
[2022-06-30] MEDS ORDERED: NIFE-141 PO (11:52)
[2022-06-30] MEDS ORDERED: ASPI-1444 PO (11:52)
[2022-06-30] MEDS ORDERED: LISI-893 PO (11:52)
[2022-06-30] MEDS: TraMADol HCL 50 MG TABLET PO PRN (12:52)
[2022-06-30] MEDS ORDERED: POTASSIUM CHLORIDE 10% 40 MEQ/30 ML LIQUID UDCUP PO ONE (13:15)
[2022-06-30 15:31] LABS: ALBUMIN 3.7 g/dL (3.4-5.0); BILIRUBIN,TOTAL 0.9 mg/dL (0.1-1.0); CALCIUM, TOTAL 9.6 mg/dL (8.8-10.5); CREATININE 0.94 mg/dL (0.60-1.30); POTASSIUM 4.5 mmol/L (3.5-5.1); TOTAL PROTEIN, SERUM 7.6 g/dL (6.4-8.2)
[2022-06-30] MEDS: ATORVASTATIN CALCIUM 20 MG TABLET PO SCH (21:07)
[2022-07-01 04:33] VITALS: BP 100/72
[2022-07-01] MEDS: LEVOTHYROXINE SODIUM 75 MCG TABLET PO SCH (06:43)
[2022-07-01 06:46] LABS: BASOPHILS % (AUTO) 0.4 % (0.0-2.0); HEMATOCRIT 33.9 % (36-46); HEMOGLOBIN 11.4 g/dL (12.0-16.0); LYMPHOCYTES # (AUTO) 4.9 K/uL (1.0-4.8); LYMPHOCYTES % (AUTO) 39.4 % (22.0-44.0); MEAN CORPUSCULAR HGB CONC 33.5 G/dL (31.0-37.0); MEAN CORPUSCULAR VOLUME 96 fL (80-100); MONOCYTES # (AUTO) 0.9 K/uL (0.1-1.0); MONOCYTES % (AUTO) 7.6 % (2.0-9.0); NEUTROPHILS # (AUTO) 6.3 K/uL (1.8-7.7); NEUTROPHILS % (AUTO) 50.6 % (40.0-70.0); PLATELET COUNT (AUTO) 160 K/uL (150-450); RED BLOOD CELL COUNT(AUTO) 3.55 MIL/uL (4.00-5.20); RED CELL DISTRIBUTION WIDTH 13.7 % (11.5-14.5)
[2022-07-01 07:09] LABS: ALANINE AMINOTRANSFERASE 19 U/L (12-78); ALBUMIN 3.2 g/dL (3.4-5.0); ALKALINE PHOSPHATASE 101 U/L (46-116); ANION GAP 6 mmol/L (8-16); ASPARTATE AMINOTRANSFERASE 21 U/L (15-37); BILIRUBIN,TOTAL 0.5 mg/dL (0.1-1.0); CARBON DIOXIDE 27 mmol/L (22-29); CHLORIDE 102 mmol/L (98-107); GLUCOSE,RANDOM 101 mg/dL (70-110); POTASSIUM 4.3 mmol/L (3.5-5.1); TOTAL PROTEIN, SERUM 6.8 g/dL (6.4-8.2); UREA NITROGEN, BLOOD 14 mg/dL (7-18)
[2022-07-01 07:12] LABS: GLOMERULAR FILTR. RATE CALC > 60 mL/min (>60); SODIUM SERUM 135 mmol/L (136-145)
[2022-07-01 08:00] VITALS: BP 112/63
[2022-07-01] MEDS: CARVEDILOL 12.5 MG TABLET PO SCH (08:57)
[2022-07-01] MEDS: ASPIRIN 81 MG DR TABLET PO SCH (08:57)
[2022-07-01] MEDS: PANTOPRAZOLE SODIUM 40 MG/VIAL IVP SCH (08:57)
[2022-07-01] MEDS: LISINOPRIL 20 MG TABLET PO SCH (09:00)
[2022-07-01] MEDS: LevETIRAcetam 500 MG in DEXTROSE 5%-WATER 100 ML IV SCH ×2 (10:27→22:44)
[2022-07-01] MEDS: TraMADol HCL 50 MG TABLET PO PRN (10:28)
[2022-07-01 11:28] VITALS: BP 112/68
[2022-07-01 16:00] VITALS: BP 119/91
[2022-07-01] MEDS: ClonazePAM 0.5 MG TABLET PO SCH ×2 (16:24→20:16)
[2022-07-01] MEDS: ATORVASTATIN CALCIUM 20 MG TABLET PO SCH (20:16)
[2022-07-01 20:44] VITALS: BP 113/69
[2022-07-01] MEDS: ACETAMINOPHEN 325 MG TABLET PO PRN (22:43)
[2022-07-02] VITALS (7 sets, daily range): BP systolic 94–124; BP diastolic 65–74
[2022-07-02] MEDS: LEVOTHYROXINE SODIUM 75 MCG TABLET PO SCH (06:01)
[2022-07-02 06:26] LABS: BASOPHILS % (AUTO) 0.5 % (0.0-2.0); EOSINOPHILS % (AUTO) 2.3 % (1.0-6.0); HEMATOCRIT 35.9 % (36-46); HEMOGLOBIN 12.1 g/dL (12.0-16.0); LYMPHOCYTES # (AUTO) 5.6 K/uL (1.0-4.8); LYMPHOCYTES % (AUTO) 44.1 % (22.0-44.0); MEAN CORPUSCULAR HEMOGLOBIN 32.2 pg (26.0-34.0); MEAN CORPUSCULAR HGB CONC 33.6 G/dL (31.0-37.0); MEAN CORPUSCULAR VOLUME 96 fL (80-100); MONOCYTES # (AUTO) 0.8 K/uL (0.1-1.0); MONOCYTES % (AUTO) 6.5 % (2.0-9.0); NEUTROPHILS % (AUTO) 46.6 % (40.0-70.0); PLATELET COUNT (AUTO) 153 K/uL (150-450); RED BLOOD CELL COUNT(AUTO) 3.74 MIL/uL (4.00-5.20); RED CELL DISTRIBUTION WIDTH 13.8 % (11.5-14.5)
[2022-07-02 06:47] LABS: ALANINE AMINOTRANSFERASE 17 U/L (12-78); ALBUMIN 3.3 g/dL (3.4-5.0); ALKALINE PHOSPHATASE 112 U/L (46-116); ANION GAP 4 mmol/L (8-16); ASPARTATE AMINOTRANSFERASE 18 U/L (15-37); BILIRUBIN,TOTAL 0.6 mg/dL (0.1-1.0); CALCIUM, TOTAL 9.3 mg/dL (8.8-10.5); CARBON DIOXIDE 30 mmol/L (22-29); CHLORIDE 102 mmol/L (98-107); CREATININE 0.79 mg/dL (0.60-1.30); GLUCOSE,RANDOM 92 mg/dL (70-110); POTASSIUM 4.1 mmol/L (3.5-5.1); TOTAL PROTEIN, SERUM 7.1 g/dL (6.4-8.2); UREA NITROGEN, BLOOD 10 mg/dL (7-18)
[2022-07-02 07:11] LABS: GLOMERULAR FILTR. RATE CALC > 60 mL/min (>60); SODIUM SERUM 136 mmol/L (136-145)
[2022-07-02] MEDS: PANTOPRAZOLE SODIUM 40 MG/VIAL IVP SCH (08:12)
[2022-07-02] MEDS: ASPIRIN 81 MG DR TABLET PO SCH (08:12)
[2022-07-02] MEDS: LISINOPRIL 20 MG TABLET PO SCH (08:13)
[2022-07-02] MEDS: ClonazePAM 0.5 MG TABLET PO SCH ×3 (08:13→20:30)
[2022-07-02] MEDS: LevETIRAcetam 500 MG in DEXTROSE 5%-WATER 100 ML IV SCH ×2 (09:39→22:33)
[2022-07-02] MEDS: CarBAMazepine 100 MG CHEWABLE TABLET PO SCH ×2 (10:30→20:31)
[2022-07-02] MEDS: TraMADol HCL 50 MG TABLET PO PRN (16:28)
[2022-07-02] MEDS: ATORVASTATIN CALCIUM 20 MG TABLET PO SCH (20:30)
[2022-07-03 05:02] VITALS: BP 96/67
[2022-07-03] MEDS: LEVOTHYROXINE SODIUM 75 MCG TABLET PO SCH (05:49)
[2022-07-03 06:30] LABS: BASOPHILS % (AUTO) 0.6 % (0.0-2.0); EOSINOPHILS % (AUTO) 2.4 % (1.0-6.0); HEMATOCRIT 34.6 % (36-46); HEMOGLOBIN 11.6 g/dL (12.0-16.0); LYMPHOCYTES # (AUTO) 5.5 K/uL (1.0-4.8); LYMPHOCYTES % (AUTO) 42.5 % (22.0-44.0); MEAN CORPUSCULAR HEMOGLOBIN 32.2 pg (26.0-34.0); MEAN CORPUSCULAR HGB CONC 33.5 G/dL (31.0-37.0); MEAN CORPUSCULAR VOLUME 96 fL (80-100); MONOCYTES % (AUTO) 7.7 % (2.0-9.0); NEUTROPHILS # (AUTO) 6.1 K/uL (1.8-7.7); NEUTROPHILS % (AUTO) 46.8 % (40.0-70.0); PLATELET COUNT (AUTO) 145 K/uL (150-450); RED BLOOD CELL COUNT(AUTO) 3.61 MIL/uL (4.00-5.20); RED CELL DISTRIBUTION WIDTH 13.8 % (11.5-14.5)
[2022-07-03 06:49] LABS: SODIUM SERUM 136 mmol/L (136-145)
[2022-07-03 06:50] LABS: ALANINE AMINOTRANSFERASE 15 U/L (12-78); ALKALINE PHOSPHATASE 105 U/L (46-116); ANION GAP 3 mmol/L (8-16); ASPARTATE AMINOTRANSFERASE 14 U/L (15-37); BILIRUBIN,TOTAL 0.4 mg/dL (0.1-1.0); CARBON DIOXIDE 30 mmol/L (22-29); CHLORIDE 103 mmol/L (98-107); CREATININE 0.83 mg/dL (0.60-1.30); GLUCOSE,RANDOM 95 mg/dL (70-110); POTASSIUM 4.5 mmol/L (3.5-5.1); TOTAL PROTEIN, SERUM 6.7 g/dL (6.4-8.2); UREA NITROGEN, BLOOD 11 mg/dL (7-18)
[2022-07-03 06:51] LABS: GLOMERULAR FILTR. RATE CALC > 60 mL/min (>60)
[2022-07-03] MEDS: PANTOPRAZOLE SODIUM 40 MG/VIAL IVP SCH (08:47)
[2022-07-03] MEDS: ASPIRIN 81 MG DR TABLET PO SCH (08:48)
[2022-07-03] MEDS: ClonazePAM 0.5 MG TABLET PO SCH ×3 (08:48→20:49)
[2022-07-03] MEDS: CarBAMazepine 100 MG CHEWABLE TABLET PO SCH ×2 (08:48→20:49)
[2022-07-03] MEDS: LISINOPRIL 20 MG TABLET PO SCH (08:55)
[2022-07-03] MEDS: LevETIRAcetam 500 MG in DEXTROSE 5%-WATER 100 ML IV SCH (09:40)
[2022-07-03] MEDS: DOCUSATE SODIUM 100 MG CAPSULE PO SCH ×2 (16:30→20:50)
[2022-07-03 20:28] VITALS: BP 112/74
[2022-07-03] MEDS: ATORVASTATIN CALCIUM 20 MG TABLET PO SCH (20:49)
[2022-07-03] MEDS: SENNOSIDES 8.6 MG TABLET PO SCH (20:50)
[2022-07-03] MEDS: LevETIRAcetam 500 MG TABLET PO SCH (20:50)
[2022-07-03 21:59] VITALS: BP 102/68
[2022-07-04 05:23] VITALS: BP 105/64
[2022-07-04] MEDS: LEVOTHYROXINE SODIUM 75 MCG TABLET PO SCH (06:01)
[2022-07-04 08:02] VITALS: BP 101/67
[2022-07-04] MEDS: LevETIRAcetam 500 MG TABLET PO SCH ×2 (08:59→20:45)
[2022-07-04] MEDS: PANTOPRAZOLE SODIUM 40 MG DR TABLET PO SCH (08:59)
[2022-07-04] MEDS: ASPIRIN 81 MG DR TABLET PO SCH (08:59)
[2022-07-04] MEDS: DOCUSATE SODIUM 100 MG CAPSULE PO SCH ×2 (09:00→20:44)
[2022-07-04] MEDS: ClonazePAM 0.5 MG TABLET PO SCH ×3 (09:00→20:44)
[2022-07-04] MEDS: LISINOPRIL 20 MG TABLET PO SCH (09:00)
[2022-07-04] MEDS: CarBAMazepine 100 MG CHEWABLE TABLET PO SCH ×2 (09:02→20:45)
[2022-07-04] MEDS: SENNOSIDES 8.6 MG TABLET PO SCH (20:45)
[2022-07-04] MEDS: ATORVASTATIN CALCIUM 20 MG TABLET PO SCH (20:45)
[2022-07-04 20:56] VITALS: BP 104/64
[2022-07-05] MEDS: MAGNESIUM HYDROXIDE SUSPENSION 30 ML UDCUP PO PRN (05:37)
[2022-07-05] MEDS: POLYETHYLENE GLYCOL 3350 17 GM PACKET PO PRN (05:37)
[2022-07-05 05:41] VITALS: BP 103/75
[2022-07-05] MEDS: LEVOTHYROXINE SODIUM 75 MCG TABLET PO SCH (05:50)
[2022-07-05 08:10] VITALS: BP 119/76
[2022-07-05] MEDS: LevETIRAcetam 500 MG TABLET PO SCH ×2 (09:13→20:11)
[2022-07-05] MEDS: LISINOPRIL 20 MG TABLET PO SCH (09:13)
[2022-07-05] MEDS: PANTOPRAZOLE SODIUM 40 MG DR TABLET PO SCH (09:13)
[2022-07-05] MEDS: ASPIRIN 81 MG DR TABLET PO SCH (09:13)
[2022-07-05] MEDS: ClonazePAM 0.5 MG TABLET PO SCH ×3 (09:13→20:11)
[2022-07-05] MEDS: CarBAMazepine 100 MG CHEWABLE TABLET PO SCH ×2 (09:13→20:11)
[2022-07-05] MEDS: DOCUSATE SODIUM 100 MG CAPSULE PO SCH ×2 (09:14→20:10)
[2022-07-05] MEDS: TraMADol HCL 50 MG TABLET PO PRN (15:10)
[2022-07-05 15:37] VITALS: BP 106/75
[2022-07-05] MEDS: SENNOSIDES 8.6 MG TABLET PO SCH (20:10)
[2022-07-05] MEDS: ATORVASTATIN CALCIUM 20 MG TABLET PO SCH (20:11)
[2022-07-05 20:24] VITALS: BP 130/82
[2022-07-06 04:46] VITALS: BP 133/85
[2022-07-06] MEDS: TraMADol HCL 50 MG TABLET PO PRN ×2 (05:31→20:32)
[2022-07-06 06:37] LABS: ALANINE AMINOTRANSFERASE 13 U/L (12-78); ALKALINE PHOSPHATASE 116 U/L (46-116); ANION GAP 8 mmol/L (8-16); ASPARTATE AMINOTRANSFERASE 15 U/L (15-37); BILIRUBIN,TOTAL 0.3 mg/dL (0.1-1.0); CALCIUM, TOTAL 9.3 mg/dL (8.8-10.5); CARBON DIOXIDE 27 mmol/L (22-29); CHLORIDE 102 mmol/L (98-107); CREATININE 0.78 mg/dL (0.60-1.30); GLUCOSE,RANDOM 92 mg/dL (70-110); POTASSIUM 4.5 mmol/L (3.5-5.1); SODIUM SERUM 137 mmol/L (136-145); UREA NITROGEN, BLOOD 18 mg/dL (7-18)
[2022-07-06 06:38] LABS: GLOMERULAR FILTR. RATE CALC > 60 mL/min (>60)
[2022-07-06] MEDS: LEVOTHYROXINE SODIUM 75 MCG TABLET PO SCH (07:06)
[2022-07-06 07:48] VITALS: BP 118/85
[2022-07-06] MEDS: PANTOPRAZOLE SODIUM 40 MG DR TABLET PO SCH (08:48)
[2022-07-06] MEDS: CarBAMazepine 100 MG CHEWABLE TABLET PO SCH ×2 (08:48→20:31)
[2022-07-06] MEDS: LISINOPRIL 20 MG TABLET PO SCH (08:48)
[2022-07-06] MEDS: LevETIRAcetam 500 MG TABLET PO SCH ×2 (08:49→20:31)
[2022-07-06] MEDS: ASPIRIN 81 MG DR TABLET PO SCH (08:49)
[2022-07-06] MEDS: DOCUSATE SODIUM 100 MG CAPSULE PO SCH ×2 (08:49→20:31)
[2022-07-06] MEDS: ClonazePAM 0.5 MG TABLET PO SCH ×3 (08:49→20:30)
[2022-07-06 10:53] LABS: BASOPHILS % (AUTO) 0.7 % (0.0-2.0); EOSINOPHILS % (AUTO) 3.5 % (1.0-6.0); HEMATOCRIT 39.7 % (36-46); HEMOGLOBIN 13.1 g/dL (12.0-16.0); LYMPHOCYTES # (AUTO) 3.6 K/uL (1.0-4.8); LYMPHOCYTES % (AUTO) 36.9 % (22.0-44.0); MEAN CORPUSCULAR HEMOGLOBIN 31.8 pg (26.0-34.0); MEAN CORPUSCULAR HGB CONC 32.9 G/dL (31.0-37.0); MEAN CORPUSCULAR VOLUME 97 fL (80-100); MONOCYTES # (AUTO) 0.8 K/uL (0.1-1.0); MONOCYTES % (AUTO) 7.8 % (2.0-9.0); NEUTROPHILS # (AUTO) 4.9 K/uL (1.8-7.7); NEUTROPHILS % (AUTO) 51.1 % (40.0-70.0); PLATELET COUNT (AUTO) 172 K/uL (150-450); RED BLOOD CELL COUNT(AUTO) 4.11 MIL/uL (4.00-5.20)
[2022-07-06 15:34] VITALS: BP 116/80
[2022-07-06 19:47] VITALS: BP 109/69
[2022-07-06] MEDS: ATORVASTATIN CALCIUM 20 MG TABLET PO SCH (20:31)
[2022-07-06] MEDS: SENNOSIDES 8.6 MG TABLET PO SCH (20:31)
[2022-07-07 04:30] VITALS: BP 110/73
[2022-07-07] MEDS: LEVOTHYROXINE SODIUM 75 MCG TABLET PO SCH (06:47)
[2022-07-07 08:04] VITALS: BP 108/71
[2022-07-07] MEDS: LevETIRAcetam 500 MG TABLET PO SCH ×2 (09:00→20:39)
[2022-07-07] MEDS: LISINOPRIL 20 MG TABLET PO SCH (09:00)
[2022-07-07] MEDS: PANTOPRAZOLE SODIUM 40 MG DR TABLET PO SCH (09:46)
[2022-07-07] MEDS: ClonazePAM 0.5 MG TABLET PO SCH (09:46)
[2022-07-07] MEDS: ASPIRIN 81 MG DR TABLET PO SCH (09:47)
[2022-07-07] MEDS: DOCUSATE SODIUM 100 MG CAPSULE PO SCH ×2 (09:47→21:00)
[2022-07-07] MEDS: CarBAMazepine 100 MG CHEWABLE TABLET PO SCH ×2 (09:48→20:39)
[2022-07-07] MEDS ORDERED: LEVE500T8 PO (11:46)
[2022-07-07] MEDS ORDERED: DOCU-385 PO (11:46)
[2022-07-07] MEDS ORDERED: LEVO75 PO (11:46)
[2022-07-07] MEDS ORDERED: CARB100 PO (11:46)
[2022-07-07] MEDS ORDERED: SENN-187 PO (11:46)
[2022-07-07] MEDS ORDERED: PANT-31 PO (11:46)
[2022-07-07] MEDS ORDERED: ASPI-1444 PO (11:46)
[2022-07-07] MEDS ORDERED: LISI-894 PO (11:46)
[2022-07-07 13:27] LABS: COVID AG,FIA SOURCE NASAL SWAB
[2022-07-07 16:07] VITALS: BP 104/72
[2022-07-07 20:14] VITALS: BP 107/73
[2022-07-07] MEDS: SENNOSIDES 8.6 MG TABLET PO SCH (20:39)
[2022-07-07] MEDS: ATORVASTATIN CALCIUM 20 MG TABLET PO SCH (20:39)
[2022-07-07] MEDS: ClonazePAM 1 MG TABLET PO SCH (20:39)
[2022-07-07] MEDS: ACETAMINOPHEN 325 MG TABLET PO PRN (20:40)
[2022-07-08 04:29] VITALS: BP 130/90
[2022-07-08 07:37] VITALS: BP 118/78
[2022-07-08] MEDS: LEVOTHYROXINE SODIUM 75 MCG TABLET PO SCH (07:53)
[2022-07-08] MEDS: LevETIRAcetam 500 MG TABLET PO SCH ×2 (09:00→20:33)
[2022-07-08] MEDS: LISINOPRIL 20 MG TABLET PO SCH (09:33)
[2022-07-08] MEDS: CarBAMazepine 100 MG CHEWABLE TABLET PO SCH ×2 (09:33→20:30)
[2022-07-08] MEDS: DOCUSATE SODIUM 100 MG CAPSULE PO SCH ×2 (09:33→20:30)
[2022-07-08] MEDS: PANTOPRAZOLE SODIUM 40 MG DR TABLET PO SCH (09:33)
[2022-07-08] MEDS: ASPIRIN 81 MG DR TABLET PO SCH (09:33)
[2022-07-08] MEDS: ClonazePAM 1 MG TABLET PO SCH ×2 (09:33→20:30)
[2022-07-08] MEDS: ACETAMINOPHEN 325 MG TABLET PO PRN ×2 (09:38→16:34)
[2022-07-08 15:12] VITALS: BP 109/74
[2022-07-08] MEDS: POLYETHYLENE GLYCOL 3350 17 GM PACKET PO PRN (16:37)
[2022-07-08 20:18] VITALS: BP 131/68
[2022-07-08] MEDS: ATORVASTATIN CALCIUM 20 MG TABLET PO SCH (20:30)
[2022-07-08] MEDS: SENNOSIDES 8.6 MG TABLET PO SCH (20:31)
[2022-07-09 02:34] VITALS: BP 108/73
[2022-07-09] MEDS: LEVOTHYROXINE SODIUM 75 MCG TABLET PO SCH (06:56)
[2022-07-09 07:25] VITALS: BP 114/79
[2022-07-09] MEDS: ASPIRIN 81 MG DR TABLET PO SCH (08:12)
[2022-07-09] MEDS: PANTOPRAZOLE SODIUM 40 MG DR TABLET PO SCH (08:13)
[2022-07-09] MEDS: LevETIRAcetam 500 MG TABLET PO SCH ×2 (08:13→20:12)
[2022-07-09] MEDS: ClonazePAM 1 MG TABLET PO SCH ×2 (08:13→20:12)
[2022-07-09] MEDS: CarBAMazepine 100 MG CHEWABLE TABLET PO SCH ×2 (08:13→20:13)
[2022-07-09] MEDS: DOCUSATE SODIUM 100 MG CAPSULE PO SCH ×2 (08:14→20:18)
[2022-07-09] MEDS: LISINOPRIL 20 MG TABLET PO SCH (08:15)
[2022-07-09] MEDS: ACETAMINOPHEN 325 MG TABLET PO PRN ×2 (14:54→20:47)
[2022-07-09 16:12] VITALS: BP 120/87
[2022-07-09 19:19] VITALS: BP 95/58
[2022-07-09] MEDS: ATORVASTATIN CALCIUM 20 MG TABLET PO SCH (20:12)
[2022-07-09] MEDS: SENNOSIDES 8.6 MG TABLET PO SCH (20:18)
[2022-07-09] MEDS: KETOROLAC TROMETHAMINE 15 MG/ML VIAL IVP PRN (21:10)
[2022-07-10 04:11] VITALS: BP 107/63
[2022-07-10] MEDS: LEVOTHYROXINE SODIUM 75 MCG TABLET PO SCH (06:06)
[2022-07-10] MEDS: KETOROLAC TROMETHAMINE 15 MG/ML VIAL IVP PRN ×2 (06:16→15:57)
[2022-07-10 08:30] VITALS: BP 119/62
[2022-07-10] MEDS: CarBAMazepine 100 MG CHEWABLE TABLET PO SCH ×2 (09:09→20:00)
[2022-07-10] MEDS: ASPIRIN 81 MG DR TABLET PO SCH (09:09)
[2022-07-10] MEDS: ClonazePAM 1 MG TABLET PO SCH ×2 (09:09→20:00)
[2022-07-10] MEDS: LevETIRAcetam 500 MG TABLET PO SCH ×2 (09:10→20:00)
[2022-07-10] MEDS: PANTOPRAZOLE SODIUM 40 MG DR TABLET PO SCH (09:10)
[2022-07-10] MEDS: LISINOPRIL 20 MG TABLET PO SCH (09:10)
[2022-07-10] MEDS: DOCUSATE SODIUM 100 MG CAPSULE PO SCH ×2 (09:10→19:59)
[2022-07-10 12:35] VITALS: BP 125/83
[2022-07-10 19:43] VITALS: BP 137/91
[2022-07-10] MEDS: ATORVASTATIN CALCIUM 20 MG TABLET PO SCH (20:00)
[2022-07-10] MEDS: SENNOSIDES 8.6 MG TABLET PO SCH (20:00)
[2022-07-10] MEDS: ACETAMINOPHEN 325 MG TABLET PO PRN (21:42)
[2022-07-10] MEDS: KETOROLAC TROMETHAMINE 10 MG TABLET PO PRN (21:59)
[2022-07-11 04:19] VITALS: BP 126/81
[2022-07-11] MEDS: LEVOTHYROXINE SODIUM 75 MCG TABLET PO SCH (06:14)
[2022-07-11] MEDS ORDERED: CARISOPRODOL 350 MG TABLET PO PRN (07:30)
[2022-07-11 08:03] VITALS: BP 132/95
[2022-07-11] MEDS: LevETIRAcetam 500 MG TABLET PO SCH ×2 (08:23→19:46)
[2022-07-11] MEDS: DOCUSATE SODIUM 100 MG CAPSULE PO SCH ×2 (08:23→19:47)
[2022-07-11] MEDS: ASPIRIN 81 MG DR TABLET PO SCH (08:23)
[2022-07-11] MEDS: LISINOPRIL 20 MG TABLET PO SCH (08:24)
[2022-07-11] MEDS: CarBAMazepine 100 MG CHEWABLE TABLET PO SCH ×2 (08:24→19:47)
[2022-07-11] MEDS: ClonazePAM 1 MG TABLET PO SCH ×2 (08:24→19:47)
[2022-07-11] MEDS: PANTOPRAZOLE SODIUM 40 MG DR TABLET PO SCH (08:24)
[2022-07-11] MEDS: TiZANidine HCL 4 MG TABLET PO PRN ×2 (13:45→19:47)
[2022-07-11] MEDS: KETOROLAC TROMETHAMINE 10 MG TABLET PO PRN (13:56)
[2022-07-11 15:42] VITALS: BP 132/88
[2022-07-11] MEDS: SENNOSIDES 8.6 MG TABLET PO SCH (19:46)
[2022-07-11] MEDS: ATORVASTATIN CALCIUM 20 MG TABLET PO SCH (19:46)
[2022-07-11 20:10] VITALS: BP 136/85
[2022-07-12] MEDS ORDERED: ZOLPIDEM TARTRATE 5 MG TABLET PO PRN
[2022-07-12 04:25] VITALS: BP 136/86
[2022-07-12] MEDS: ACETAMINOPHEN 325 MG TABLET PO PRN ×4 (04:34→20:57)
[2022-07-12] MEDS: TiZANidine HCL 4 MG TABLET PO PRN ×2 (06:03→15:24)
[2022-07-12] MEDS: LEVOTHYROXINE SODIUM 75 MCG TABLET PO SCH (06:03)
[2022-07-12 08:31] VITALS: BP 141/90
[2022-07-12] MEDS: DOCUSATE SODIUM 100 MG CAPSULE PO SCH ×2 (08:40→21:00)
[2022-07-12] MEDS: PANTOPRAZOLE SODIUM 40 MG DR TABLET PO SCH (08:41)
[2022-07-12] MEDS: ClonazePAM 1 MG TABLET PO SCH ×2 (08:41→20:51)
[2022-07-12] MEDS: ASPIRIN 81 MG DR TABLET PO SCH (08:41)
[2022-07-12] MEDS: CarBAMazepine 100 MG CHEWABLE TABLET PO SCH ×2 (08:41→20:52)
[2022-07-12] MEDS: LISINOPRIL 20 MG TABLET PO SCH (08:41)
[2022-07-12] MEDS: LevETIRAcetam 500 MG TABLET PO SCH ×2 (08:41→20:51)
[2022-07-12 15:44] VITALS: BP 131/104
[2022-07-12 19:50] VITALS: BP 143/91
[2022-07-12] MEDS: ATORVASTATIN CALCIUM 20 MG TABLET PO SCH (20:51)
[2022-07-12] MEDS: SENNOSIDES 8.6 MG TABLET PO SCH (21:00)
[2022-07-13 04:20] VITALS: BP 121/96
[2022-07-13] MEDS: LEVOTHYROXINE SODIUM 75 MCG TABLET PO SCH (05:32)
[2022-07-13] MEDS: KETOROLAC TROMETHAMINE 10 MG TABLET PO PRN ×2 (05:32→22:01)
[2022-07-13 07:28] VITALS: BP 151/91
[2022-07-13] MEDS: ASPIRIN 81 MG DR TABLET PO SCH (08:19)
[2022-07-13] MEDS: PANTOPRAZOLE SODIUM 40 MG DR TABLET PO SCH (08:19)
[2022-07-13] MEDS: LISINOPRIL 20 MG TABLET PO SCH (08:19)
[2022-07-13] MEDS: DOCUSATE SODIUM 100 MG CAPSULE PO SCH (08:19)
[2022-07-13] MEDS: CarBAMazepine 100 MG CHEWABLE TABLET PO SCH ×2 (08:20→20:02)
[2022-07-13] MEDS: ClonazePAM 1 MG TABLET PO SCH ×2 (08:20→20:02)
[2022-07-13] MEDS: LevETIRAcetam 500 MG TABLET PO SCH ×2 (08:20→20:02)
[2022-07-13] MEDS: ACETAMINOPHEN 325 MG TABLET PO PRN (08:28)
[2022-07-13] MEDS: TiZANidine HCL 4 MG TABLET PO PRN ×2 (13:20→19:44)
[2022-07-13 15:28] LABS: BASOPHILS % (AUTO) 0.8 % (0.0-2.0); EOSINOPHILS % (AUTO) 2.5 % (1.0-6.0); HEMATOCRIT 40.3 % (36-46); LYMPHOCYTES % (AUTO) 32.8 % (22.0-44.0); MEAN CORPUSCULAR HEMOGLOBIN 30.8 pg (26.0-34.0); MEAN CORPUSCULAR HGB CONC 32.3 G/dL (31.0-37.0); MEAN CORPUSCULAR VOLUME 96 fL (80-100); MONOCYTES # (AUTO) 0.6 K/uL (0.1-1.0); MONOCYTES % (AUTO) 4.7 % (2.0-9.0); NEUTROPHILS # (AUTO) 7.2 K/uL (1.8-7.7); NEUTROPHILS % (AUTO) 59.2 % (40.0-70.0); PLATELET COUNT (AUTO) 218 K/uL (150-450); RED BLOOD CELL COUNT(AUTO) 4.22 MIL/uL (4.00-5.20); RED CELL DISTRIBUTION WIDTH 13.2 % (11.5-14.5)
[2022-07-13 15:34] LABS: ANION GAP 3 mmol/L (8-16); CALCIUM, TOTAL 9.5 mg/dL (8.8-10.5); CARBON DIOXIDE 29 mmol/L (22-29); CHLORIDE 98 mmol/L (98-107); CREATININE 0.81 mg/dL (0.60-1.30); GLOMERULAR FILTR. RATE CALC > 60 mL/min (>60); GLUCOSE,RANDOM 121 mg/dL (70-110); POTASSIUM 4.6 mmol/L (3.5-5.1); SODIUM SERUM 130 mmol/L (136-145); UREA NITROGEN, BLOOD 17 mg/dL (7-18)
[2022-07-13 15:40] LABS: ALANINE AMINOTRANSFERASE 18 U/L (12-78); ALBUMIN 3.4 g/dL (3.4-5.0); ALKALINE PHOSPHATASE 123 U/L (46-116); ASPARTATE AMINOTRANSFERASE 15 U/L (15-37); BILIRUBIN,TOTAL 0.3 mg/dL (0.1-1.0); TOTAL PROTEIN, SERUM 7.4 g/dL (6.4-8.2)
[2022-07-13 15:44] VITALS: BP 110/73
[2022-07-13] MEDS ORDERED: LEVOFLOXACIN 500 MG TABLET PO ONE (17:00)
[2022-07-13] MEDS: MECLIZINE HCL 25 MG TABLET PO PRN (19:45)
[2022-07-13] MEDS: LORazepam 2 MG/ML VIAL IVP PRN (19:54)
[2022-07-13 20:00] VITALS: BP 88/56
[2022-07-13] MEDS: ATORVASTATIN CALCIUM 20 MG TABLET PO SCH (20:03)
[2022-07-13] MEDS: ZOLPIDEM TARTRATE 5 MG TABLET PO PRN (23:08)
[2022-07-14 05:33] VITALS: BP 116/85
[2022-07-14] MEDS: ACETAMINOPHEN 325 MG TABLET PO PRN ×2 (06:11→17:24)
[2022-07-14] MEDS: LEVOTHYROXINE SODIUM 75 MCG TABLET PO SCH (06:12)
[2022-07-14] MEDS: CarBAMazepine 100 MG CHEWABLE TABLET PO SCH ×2 (07:49→20:16)
[2022-07-14] MEDS: LevETIRAcetam 500 MG TABLET PO SCH ×2 (07:49→20:16)
[2022-07-14] MEDS: ClonazePAM 1 MG TABLET PO SCH ×2 (07:49→20:16)
[2022-07-14] MEDS: PANTOPRAZOLE SODIUM 40 MG DR TABLET PO SCH (07:49)
[2022-07-14] MEDS: ASPIRIN 81 MG DR TABLET PO SCH (07:49)
[2022-07-14] MEDS: LISINOPRIL 20 MG TABLET PO SCH (07:49)
[2022-07-14] MEDS: LEVOFLOXACIN 500 MG TABLET PO SCH (07:49)
[2022-07-14 08:01] VITALS: BP 136/88
[2022-07-14] MEDS ORDERED: LEVOFLOXACIN 500 MG TABLET PO SCH (09:00)
[2022-07-14] MEDS: KETOROLAC TROMETHAMINE 10 MG TABLET PO PRN ×2 (12:12→20:16)
[2022-07-14 15:54] VITALS: BP 125/80
[2022-07-14 15:59] LABS: COVID AG,FIA SOURCE NASAL SWAB
[2022-07-14] MEDS: ATORVASTATIN CALCIUM 20 MG TABLET PO SCH (20:16)
[2022-07-14] MEDS: TiZANidine HCL 4 MG TABLET PO PRN (20:21)
[2022-07-14 20:28] VITALS: BP 103/68
[2022-07-14] MEDS: ZOLPIDEM TARTRATE 5 MG TABLET PO PRN (21:52)
[2022-07-14] MEDS: LORazepam 2 MG/ML VIAL IVP PRN (22:28)
[2022-07-15] MEDS: LEVOTHYROXINE SODIUM 75 MCG TABLET PO SCH (05:44)
[2022-07-15] MEDS: LISINOPRIL 20 MG TABLET PO SCH (08:31)
[2022-07-15] MEDS: ClonazePAM 1 MG TABLET PO SCH ×2 (08:31→20:19)
[2022-07-15] MEDS: LevETIRAcetam 500 MG TABLET PO SCH ×2 (08:31→20:19)
[2022-07-15] MEDS: PANTOPRAZOLE SODIUM 40 MG DR TABLET PO SCH (08:31)
[2022-07-15] MEDS: ASPIRIN 81 MG DR TABLET PO SCH (08:31)
[2022-07-15] MEDS: ACETAMINOPHEN 325 MG TABLET PO PRN ×3 (08:32→22:08)
[2022-07-15 08:36] VITALS: BP 129/81
[2022-07-15] MEDS: LEVOFLOXACIN 500 MG TABLET PO SCH (11:10)
[2022-07-15] MEDS: CarBAMazepine 100 MG CHEWABLE TABLET PO SCH ×2 (11:10→20:18)
[2022-07-15] MEDS: TiZANidine HCL 4 MG TABLET PO PRN ×2 (11:10→20:23)
[2022-07-15] MEDS: LORazepam 2 MG/ML VIAL IVP PRN (15:29)
[2022-07-15] MEDS: ATORVASTATIN CALCIUM 20 MG TABLET PO SCH (20:19)
[2022-07-15 20:44] VITALS: BP 84/59
[2022-07-15] MEDS: ZOLPIDEM TARTRATE 5 MG TABLET PO PRN (22:06)
[2022-07-16] MEDS: LEVOTHYROXINE SODIUM 75 MCG TABLET PO SCH (06:22)
[2022-07-16 06:35] VITALS: BP 85/67
[2022-07-16 08:30] VITALS: BP 119/73
[2022-07-16] MEDS: PANTOPRAZOLE SODIUM 40 MG DR TABLET PO SCH (08:33)
[2022-07-16] MEDS: ASPIRIN 81 MG DR TABLET PO SCH (08:33)
[2022-07-16] MEDS: ClonazePAM 1 MG TABLET PO SCH ×2 (08:33→20:14)
[2022-07-16] MEDS: CarBAMazepine 100 MG CHEWABLE TABLET PO SCH ×2 (08:33→20:14)
[2022-07-16] MEDS: LevETIRAcetam 500 MG TABLET PO SCH ×2 (08:33→20:14)
[2022-07-16] MEDS: LISINOPRIL 20 MG TABLET PO SCH ×2 (08:33→08:40)
[2022-07-16] MEDS: MECLIZINE HCL 25 MG TABLET PO PRN (15:24)
[2022-07-16 15:37] VITALS: BP 134/78
[2022-07-16 20:04] VITALS: BP 85/51
[2022-07-16] MEDS: ATORVASTATIN CALCIUM 20 MG TABLET PO SCH (20:14)
[2022-07-16] MEDS: ZOLPIDEM TARTRATE 5 MG TABLET PO PRN (22:38)
[2022-07-16] MEDS: ACETAMINOPHEN 325 MG TABLET PO PRN (22:38)
[2022-07-16] MEDS ORDERED: SODIUM CHLORIDE 0.9% 500 ML IV ONE (23:00)
[2022-07-16 23:16] VITALS: BP 93/58
[2022-07-16] MEDS: SODIUM CHLORIDE 0.9% 1,000 ML IV SCH (23:32)
[2022-07-17 04:53] VITALS: BP 104/62
[2022-07-17] MEDS: LEVOTHYROXINE SODIUM 75 MCG TABLET PO SCH (05:39)
[2022-07-17] MEDS: LORazepam 2 MG/ML VIAL IVP PRN (05:43)
[2022-07-17 07:29] VITALS: BP 137/79
[2022-07-17] MEDS: LISINOPRIL 20 MG TABLET PO SCH (08:41)
[2022-07-17] MEDS: ClonazePAM 1 MG TABLET PO SCH ×2 (08:41→20:21)
[2022-07-17] MEDS: CarBAMazepine 100 MG CHEWABLE TABLET PO SCH ×2 (08:41→20:21)
[2022-07-17] MEDS: LevETIRAcetam 500 MG TABLET PO SCH ×2 (08:41→20:21)
[2022-07-17] MEDS: PANTOPRAZOLE SODIUM 40 MG DR TABLET PO SCH (08:41)
[2022-07-17] MEDS: ASPIRIN 81 MG DR TABLET PO SCH (08:41)
[2022-07-17] MEDS: ACETAMINOPHEN 325 MG TABLET PO PRN (08:42)
[2022-07-17] MEDS: SODIUM CHLORIDE 0.9% 1,000 ML IV SCH (11:28)
[2022-07-17] MEDS: OxyCODONE HCL/ACETAMINOPHEN 10-325 MG TABLET PO PRN (17:16)
[2022-07-17] MEDS: MORPHINE SULFATE 2 MG/ML SYRINGE IVP PRN ×2 (18:05→22:18)
[2022-07-17 20:00] VITALS: BP 119/79
[2022-07-17] MEDS: ZOLPIDEM TARTRATE 5 MG TABLET PO PRN (20:20)
[2022-07-17] MEDS: ATORVASTATIN CALCIUM 20 MG TABLET PO SCH (20:21)
[2022-07-18] MEDS: SODIUM CHLORIDE 0.9% 1,000 ML IV SCH ×2 (01:40→15:00)
[2022-07-18] MEDS: MORPHINE SULFATE 2 MG/ML SYRINGE IVP PRN ×3 (02:17→23:07)
[2022-07-18] MEDS: OxyCODONE HCL/ACETAMINOPHEN 10-325 MG TABLET PO PRN (03:36)
[2022-07-18 04:44] VITALS: BP 91/47
[2022-07-18 06:55] VITALS: BP 78/49
[2022-07-18] MEDS ORDERED: MORPHINE SULFATE 2 MG/ML SYRINGE IVP ONE (07:00)
[2022-07-18] MEDS: LevETIRAcetam 500 MG TABLET PO SCH ×2 (08:27→21:29)
[2022-07-18] MEDS: LISINOPRIL 20 MG TABLET PO SCH ×2 (08:27→08:31)
[2022-07-18] MEDS: LEVOTHYROXINE SODIUM 75 MCG TABLET PO SCH (08:27)
[2022-07-18] MEDS: ClonazePAM 1 MG TABLET PO SCH ×2 (08:27→21:29)
[2022-07-18] MEDS: PANTOPRAZOLE SODIUM 40 MG DR TABLET PO SCH (08:27)
[2022-07-18] MEDS: ASPIRIN 81 MG DR TABLET PO SCH (08:27)
[2022-07-18] MEDS: CarBAMazepine 100 MG CHEWABLE TABLET PO SCH ×2 (08:28→21:29)
[2022-07-18] MEDS ORDERED: APIXABAN 5 MG TABLET PO ONE (13:00)
[2022-07-18 13:01] VITALS: BP 78/50
[2022-07-18 15:36] VITALS: BP 91/48
[2022-07-18 19:43] VITALS: BP 106/69
[2022-07-18] MEDS: ZOLPIDEM TARTRATE 5 MG TABLET PO PRN (21:29)
[2022-07-18] MEDS: ATORVASTATIN CALCIUM 20 MG TABLET PO SCH (21:29)
[2022-07-18] MEDS: APIXABAN 5 MG TABLET PO SCH (21:29)
[2022-07-19] MEDS: SODIUM CHLORIDE 0.9% 1,000 ML IV SCH ×2 (03:22→17:40)
[2022-07-19 05:23] VITALS: BP 113/70
[2022-07-19] MEDS: LEVOTHYROXINE SODIUM 75 MCG TABLET PO SCH (06:09)
[2022-07-19] MEDS: MORPHINE SULFATE 2 MG/ML SYRINGE IVP PRN ×4 (06:16→20:23)
[2022-07-19 07:23] VITALS: BP 90/57
[2022-07-19] MEDS: ClonazePAM 1 MG TABLET PO SCH ×2 (08:59→20:20)
[2022-07-19] MEDS: LevETIRAcetam 500 MG TABLET PO SCH ×2 (08:59→20:20)
[2022-07-19] MEDS: APIXABAN 5 MG TABLET PO SCH ×2 (08:59→20:20)
[2022-07-19] MEDS: ASPIRIN 81 MG DR TABLET PO SCH (09:00)
[2022-07-19] MEDS: CarBAMazepine 100 MG CHEWABLE TABLET PO SCH ×2 (09:00→20:21)
[2022-07-19] MEDS: PANTOPRAZOLE SODIUM 40 MG DR TABLET PO SCH (09:00)
[2022-07-19] MEDS: HYDROCODONE/ACETAMINOPHEN 5-325 MG TABLET PO PRN (15:28)
[2022-07-19] MEDS: ATORVASTATIN CALCIUM 20 MG TABLET PO SCH (20:20)
[2022-07-19] MEDS: ZOLPIDEM TARTRATE 5 MG TABLET PO PRN (20:20)
[2022-07-19 20:25] VITALS: BP 106/71
[2022-07-20] MEDS: MORPHINE SULFATE 2 MG/ML SYRINGE IVP PRN ×5 (01:17→18:43)
[2022-07-20 04:52] VITALS: BP 96/69
[2022-07-20] MEDS: LEVOTHYROXINE SODIUM 75 MCG TABLET PO SCH (06:40)
[2022-07-20] MEDS: SODIUM CHLORIDE 0.9% 1,000 ML IV SCH ×2 (06:41→20:20)
[2022-07-20] MEDS: APIXABAN 5 MG TABLET PO SCH ×2 (08:15→20:35)
[2022-07-20] MEDS: LevETIRAcetam 500 MG TABLET PO SCH ×2 (08:15→20:35)
[2022-07-20] MEDS: PANTOPRAZOLE SODIUM 40 MG DR TABLET PO SCH (08:15)
[2022-07-20] MEDS: ClonazePAM 1 MG TABLET PO SCH ×2 (08:15→20:35)
[2022-07-20] MEDS: ASPIRIN 81 MG DR TABLET PO SCH (08:15)
[2022-07-20] MEDS: CarBAMazepine 100 MG CHEWABLE TABLET PO SCH ×2 (08:16→20:35)
[2022-07-20 09:08] VITALS: BP 115/95
[2022-07-20 15:30] VITALS: BP 107/66
[2022-07-20 20:17] VITALS: BP 100/59
[2022-07-20] MEDS: ATORVASTATIN CALCIUM 20 MG TABLET PO SCH (20:35)
[2022-07-20] MEDS: OxyCODONE HCL/ACETAMINOPHEN 10-325 MG TABLET PO PRN (20:36)
[2022-07-21] MEDS: MORPHINE SULFATE 2 MG/ML SYRINGE IVP PRN (00:18)
[2022-07-21] MEDS: LEVOTHYROXINE SODIUM 75 MCG TABLET PO SCH (05:09)
[2022-07-21 05:10] VITALS: BP 91/60
[2022-07-21] MEDS: OxyCODONE HCL/ACETAMINOPHEN 10-325 MG TABLET PO PRN ×4 (05:10→20:49)
[2022-07-21] MEDS: SODIUM CHLORIDE 0.9% 1,000 ML IV SCH ×2 (09:40→21:01)
[2022-07-21] MEDS: SENNOSIDES 8.6 MG TABLET PO SCH ×2 (10:13→20:48)
[2022-07-21] MEDS: PANTOPRAZOLE SODIUM 40 MG DR TABLET PO SCH (10:15)
[2022-07-21] MEDS: LevETIRAcetam 500 MG TABLET PO SCH ×2 (10:15→20:48)
[2022-07-21] MEDS: ASPIRIN 81 MG DR TABLET PO SCH (10:15)
[2022-07-21] MEDS: ClonazePAM 1 MG TABLET PO SCH ×2 (10:15→20:48)
[2022-07-21] MEDS: DOCUSATE SODIUM 100 MG CAPSULE PO SCH ×2 (10:15→20:48)
[2022-07-21] MEDS: APIXABAN 5 MG TABLET PO SCH ×2 (10:15→20:48)
[2022-07-21] MEDS: CarBAMazepine 100 MG CHEWABLE TABLET PO SCH ×2 (10:16→20:49)
[2022-07-21 15:32] VITALS: BP 91/70
[2022-07-21 20:00] VITALS: BP 98/57
[2022-07-21] MEDS: ATORVASTATIN CALCIUM 20 MG TABLET PO SCH (20:48)
[2022-07-21] MEDS: ZOLPIDEM TARTRATE 5 MG TABLET PO PRN (20:49)
[2022-07-22] MEDS: LEVOTHYROXINE SODIUM 75 MCG TABLET PO SCH (05:37)
[2022-07-22 08:07] VITALS: BP 94/61
[2022-07-22] MEDS: MORPHINE SULFATE 2 MG/ML SYRINGE IVP PRN (08:14)
[2022-07-22] MEDS: ASPIRIN 81 MG DR TABLET PO SCH (08:16)
[2022-07-22] MEDS: SENNOSIDES 8.6 MG TABLET PO SCH ×2 (08:16→20:16)
[2022-07-22] MEDS: LevETIRAcetam 500 MG TABLET PO SCH ×2 (08:16→20:14)
[2022-07-22] MEDS: ClonazePAM 1 MG TABLET PO SCH ×2 (08:16→20:14)
[2022-07-22] MEDS: PANTOPRAZOLE SODIUM 40 MG DR TABLET PO SCH (08:16)
[2022-07-22] MEDS: DOCUSATE SODIUM 100 MG CAPSULE PO SCH ×2 (08:16→20:16)
[2022-07-22] MEDS: CarBAMazepine 100 MG CHEWABLE TABLET PO SCH ×2 (08:16→20:14)
[2022-07-22] MEDS: APIXABAN 5 MG TABLET PO SCH ×2 (08:17→20:14)
[2022-07-22] MEDS: SODIUM CHLORIDE 0.9% 1,000 ML IV SCH (12:44)
[2022-07-22] MEDS: OxyCODONE HCL/ACETAMINOPHEN 10-325 MG TABLET PO PRN ×3 (12:44→23:31)
[2022-07-22 16:09] VITALS: BP 103/58
[2022-07-22 19:50] VITALS: BP 110/55
[2022-07-22] MEDS: ATORVASTATIN CALCIUM 20 MG TABLET PO SCH (20:14)
[2022-07-22] MEDS: ZOLPIDEM TARTRATE 5 MG TABLET PO PRN (20:16)
[2022-07-23 04:19] VITALS: BP 109/72
[2022-07-23] MEDS: LEVOTHYROXINE SODIUM 75 MCG TABLET PO SCH (05:27)
[2022-07-23] MEDS: SODIUM CHLORIDE 0.9% 1,000 ML IV SCH ×2 (05:27→15:38)
[2022-07-23] MEDS: OxyCODONE HCL/ACETAMINOPHEN 10-325 MG TABLET PO PRN ×2 (06:02→18:06)
[2022-07-23 08:00] VITALS: BP 118/73
[2022-07-23] MEDS: LevETIRAcetam 500 MG TABLET PO SCH ×2 (10:48→20:10)
[2022-07-23] MEDS: PANTOPRAZOLE SODIUM 40 MG DR TABLET PO SCH (10:49)
[2022-07-23] MEDS: ClonazePAM 1 MG TABLET PO SCH ×2 (10:49→20:09)
[2022-07-23] MEDS: DOCUSATE SODIUM 100 MG CAPSULE PO SCH ×2 (10:49→20:09)
[2022-07-23] MEDS: ASPIRIN 81 MG DR TABLET PO SCH (10:49)
[2022-07-23] MEDS: SENNOSIDES 8.6 MG TABLET PO SCH ×2 (10:49→20:10)
[2022-07-23] MEDS: CarBAMazepine 100 MG CHEWABLE TABLET PO SCH ×2 (10:49→20:10)
[2022-07-23] MEDS: APIXABAN 5 MG TABLET PO SCH ×2 (10:49→20:10)
[2022-07-23] MEDS: HYDROCODONE/ACETAMINOPHEN 5-325 MG TABLET PO PRN (11:01)
[2022-07-23] MEDS ORDERED: SODIUM CHLORIDE 0.9% 500 ML IV ONE (12:35)
[2022-07-23 16:36] VITALS: BP 106/69
[2022-07-23 19:35] VITALS: BP 104/60
[2022-07-23] MEDS: ATORVASTATIN CALCIUM 20 MG TABLET PO SCH (20:10)
[2022-07-24] MEDS: MORPHINE SULFATE 2 MG/ML SYRINGE IVP PRN (01:17)
[2022-07-24 04:00] VITALS: BP 90/60
[2022-07-24] MEDS: SODIUM CHLORIDE 0.9% 1,000 ML IV SCH ×2 (06:11→17:50)
[2022-07-24] MEDS: LEVOTHYROXINE SODIUM 75 MCG TABLET PO SCH (06:11)
[2022-07-24] MEDS: POLYETHYLENE GLYCOL 3350 17 GM PACKET PO PRN ×2 (06:12→16:59)
[2022-07-24 07:25] VITALS: BP 116/75
[2022-07-24] MEDS: OxyCODONE HCL/ACETAMINOPHEN 10-325 MG TABLET PO PRN ×3 (08:45→20:29)
[2022-07-24] MEDS: DOCUSATE SODIUM 100 MG CAPSULE PO SCH ×2 (09:17→20:29)
[2022-07-24] MEDS: SENNOSIDES 8.6 MG TABLET PO SCH ×2 (09:18→20:29)
[2022-07-24] MEDS: ClonazePAM 1 MG TABLET PO SCH ×2 (09:18→20:29)
[2022-07-24] MEDS: PANTOPRAZOLE SODIUM 40 MG DR TABLET PO SCH (09:18)
[2022-07-24] MEDS: CarBAMazepine 100 MG CHEWABLE TABLET PO SCH ×2 (09:18→20:29)
[2022-07-24] MEDS: LevETIRAcetam 500 MG TABLET PO SCH ×2 (09:18→20:29)
[2022-07-24] MEDS: ASPIRIN 81 MG DR TABLET PO SCH (09:19)
[2022-07-24] MEDS: APIXABAN 5 MG TABLET PO SCH ×2 (09:19→20:29)
[2022-07-24 15:29] VITALS: BP 103/66
[2022-07-24 19:58] VITALS: BP 112/68
[2022-07-24] MEDS: ATORVASTATIN CALCIUM 20 MG TABLET PO SCH (20:29)
[2022-07-24] MEDS: ZOLPIDEM TARTRATE 5 MG TABLET PO PRN (20:35)
[2022-07-25 04:36] VITALS: BP 105/70
[2022-07-25] MEDS: OxyCODONE HCL/ACETAMINOPHEN 10-325 MG TABLET PO PRN ×4 (04:41→23:32)
[2022-07-25] MEDS: LEVOTHYROXINE SODIUM 75 MCG TABLET PO SCH (05:39)
[2022-07-25 07:41] VITALS: BP 104/60
[2022-07-25] MEDS: SODIUM CHLORIDE 0.9% 1,000 ML IV SCH ×2 (08:32→20:20)
[2022-07-25] MEDS: CarBAMazepine 100 MG CHEWABLE TABLET PO SCH ×2 (08:33→19:39)
[2022-07-25] MEDS: APIXABAN 5 MG TABLET PO SCH ×2 (08:33→19:39)
[2022-07-25] MEDS: SENNOSIDES 8.6 MG TABLET PO SCH ×2 (08:34→19:38)
[2022-07-25] MEDS: LevETIRAcetam 500 MG TABLET PO SCH ×2 (08:34→19:38)
[2022-07-25] MEDS: DOCUSATE SODIUM 100 MG CAPSULE PO SCH ×2 (08:34→19:38)
[2022-07-25] MEDS: ClonazePAM 1 MG TABLET PO SCH ×2 (08:34→19:38)
[2022-07-25] MEDS: ASPIRIN 81 MG DR TABLET PO SCH (08:34)
[2022-07-25] MEDS: PANTOPRAZOLE SODIUM 40 MG DR TABLET PO SCH (08:35)
[2022-07-25 15:02] VITALS: BP 90/55
[2022-07-25] MEDS: POLYETHYLENE GLYCOL 3350 17 GM PACKET PO PRN (18:32)
[2022-07-25] MEDS: ATORVASTATIN CALCIUM 20 MG TABLET PO SCH (19:38)
[2022-07-25 19:50] VITALS: BP 110/75
[2022-07-25] MEDS: ZOLPIDEM TARTRATE 5 MG TABLET PO PRN (22:07)
[2022-07-26] MEDS: LEVOTHYROXINE SODIUM 75 MCG TABLET PO SCH (05:58)
[2022-07-26] MEDS: OxyCODONE HCL/ACETAMINOPHEN 10-325 MG TABLET PO PRN ×3 (05:58→20:46)
[2022-07-26 06:12] VITALS: BP 106/62
[2022-07-26 08:23] VITALS: BP 109/66
[2022-07-26] MEDS: ClonazePAM 1 MG TABLET PO SCH ×2 (08:37→20:45)
[2022-07-26] MEDS: CarBAMazepine 100 MG CHEWABLE TABLET PO SCH ×2 (08:37→20:46)
[2022-07-26] MEDS: APIXABAN 5 MG TABLET PO SCH ×2 (08:38→20:45)
[2022-07-26] MEDS: SENNOSIDES 8.6 MG TABLET PO SCH ×2 (08:38→20:45)
[2022-07-26] MEDS: ASPIRIN 81 MG DR TABLET PO SCH (08:38)
[2022-07-26] MEDS: PANTOPRAZOLE SODIUM 40 MG DR TABLET PO SCH (08:39)
[2022-07-26] MEDS: LevETIRAcetam 500 MG TABLET PO SCH ×2 (08:39→20:45)
[2022-07-26] MEDS: DOCUSATE SODIUM 100 MG CAPSULE PO SCH ×2 (08:39→20:45)
[2022-07-26] MEDS: POLYETHYLENE GLYCOL 3350 17 GM PACKET PO PRN (08:42)
[2022-07-26] MEDS: SODIUM CHLORIDE 0.9% 1,000 ML IV SCH ×2 (09:40→22:51)
[2022-07-26] MEDS: HYDROCODONE/ACETAMINOPHEN 5-325 MG TABLET PO PRN (11:48)
[2022-07-26] MEDS: MORPHINE SULFATE 2 MG/ML SYRINGE IVP PRN (16:13)
[2022-07-26 20:38] VITALS: BP 103/66
[2022-07-26] MEDS: ATORVASTATIN CALCIUM 20 MG TABLET PO SCH (20:45)
[2022-07-26] MEDS: ZOLPIDEM TARTRATE 5 MG TABLET PO PRN (22:29)
[2022-07-27] MEDS: OxyCODONE HCL/ACETAMINOPHEN 10-325 MG TABLET PO PRN ×5 (02:24→15:58)
[2022-07-27 04:31] VITALS: BP 92/64
[2022-07-27 08:11] VITALS: BP 112/73
[2022-07-27] MEDS: BISACODYL 10 MG RECTAL RECTAL SUPPOSITORY PR PRN (08:18)
[2022-07-27] MEDS: PANTOPRAZOLE SODIUM 40 MG DR TABLET PO SCH (08:19)
[2022-07-27] MEDS: APIXABAN 5 MG TABLET PO SCH ×2 (08:19→20:28)
[2022-07-27] MEDS: ClonazePAM 1 MG TABLET PO SCH ×2 (08:19→20:28)
[2022-07-27] MEDS: ASPIRIN 81 MG DR TABLET PO SCH (08:19)
[2022-07-27] MEDS: CarBAMazepine 100 MG CHEWABLE TABLET PO SCH ×2 (08:19→20:28)
[2022-07-27] MEDS: DOCUSATE SODIUM 100 MG CAPSULE PO SCH ×2 (08:19→20:28)
[2022-07-27] MEDS: LevETIRAcetam 500 MG TABLET PO SCH ×2 (08:19→20:28)
[2022-07-27] MEDS: SENNOSIDES 8.6 MG TABLET PO SCH ×2 (08:19→20:28)
[2022-07-27] MEDS: LEVOTHYROXINE SODIUM 75 MCG TABLET PO SCH (08:22)
[2022-07-27 15:27] VITALS: BP 106/61
[2022-07-27 20:27] VITALS: BP 98/54
[2022-07-27] MEDS: ATORVASTATIN CALCIUM 20 MG TABLET PO SCH (20:28)
[2022-07-27] MEDS: ZOLPIDEM TARTRATE 5 MG TABLET PO PRN (20:29)
[2022-07-27] MEDS: HYDROCODONE/ACETAMINOPHEN 5-325 MG TABLET PO PRN (20:30)
[2022-07-28] MEDS: SODIUM CHLORIDE 0.9% 1,000 ML IV SCH ×2 (01:40→14:51)
[2022-07-28] MEDS: OxyCODONE HCL/ACETAMINOPHEN 10-325 MG TABLET PO PRN ×4 (02:43→20:08)
[2022-07-28 04:11] VITALS: BP 98/59
[2022-07-28 07:01] LABS: BASOPHILS % (AUTO) 0.4 % (0.0-2.0); HEMOGLOBIN 10.8 g/dL (12.0-16.0); LYMPHOCYTES # (AUTO) 4.3 K/uL (1.0-4.8); LYMPHOCYTES % (AUTO) 41.4 % (22.0-44.0); MEAN CORPUSCULAR HEMOGLOBIN 32.6 pg (26.0-34.0); MEAN CORPUSCULAR HGB CONC 33.9 G/dL (31.0-37.0); MEAN CORPUSCULAR VOLUME 96 fL (80-100); MONOCYTES # (AUTO) 0.7 K/uL (0.1-1.0); MONOCYTES % (AUTO) 7.1 % (2.0-9.0); NEUTROPHILS # (AUTO) 4.8 K/uL (1.8-7.7); NEUTROPHILS % (AUTO) 47.1 % (40.0-70.0); PLATELET COUNT (AUTO) 269 K/uL (150-450); RED BLOOD CELL COUNT(AUTO) 3.32 MIL/uL (4.00-5.20); RED CELL DISTRIBUTION WIDTH 13.5 % (11.5-14.5)
[2022-07-28 08:23] VITALS: BP 106/64
[2022-07-28] MEDS: PANTOPRAZOLE SODIUM 40 MG DR TABLET PO SCH (08:39)
[2022-07-28] MEDS: LevETIRAcetam 500 MG TABLET PO SCH ×2 (08:39→20:05)
[2022-07-28] MEDS: DOCUSATE SODIUM 100 MG CAPSULE PO SCH ×2 (08:39→20:08)
[2022-07-28] MEDS: ASPIRIN 81 MG DR TABLET PO SCH (08:39)
[2022-07-28] MEDS: LEVOTHYROXINE SODIUM 75 MCG TABLET PO SCH (08:40)
[2022-07-28] MEDS: ClonazePAM 1 MG TABLET PO SCH ×2 (08:40→20:05)
[2022-07-28] MEDS: APIXABAN 5 MG TABLET PO SCH ×2 (08:40→20:11)
[2022-07-28] MEDS: SENNOSIDES 8.6 MG TABLET PO SCH ×2 (08:41→20:06)
[2022-07-28] MEDS: CarBAMazepine 100 MG CHEWABLE TABLET PO SCH ×2 (08:42→20:05)
[2022-07-28 16:05] VITALS: BP 102/55
[2022-07-28 19:46] VITALS: BP 97/56
[2022-07-28] MEDS: ZOLPIDEM TARTRATE 5 MG TABLET PO PRN (20:05)
[2022-07-28] MEDS: ATORVASTATIN CALCIUM 20 MG TABLET PO SCH (20:05)
[2022-07-29] MEDS: OxyCODONE HCL/ACETAMINOPHEN 10-325 MG TABLET PO PRN ×5 (02:57→23:46)
[2022-07-29 03:49] VITALS: BP 96/61
[2022-07-29] MEDS: APIXABAN 5 MG TABLET PO SCH ×2 (09:50→20:31)
[2022-07-29] MEDS: ASPIRIN 81 MG DR TABLET PO SCH (09:50)
[2022-07-29] MEDS: PANTOPRAZOLE SODIUM 40 MG DR TABLET PO SCH (09:50)
[2022-07-29] MEDS: CarBAMazepine 100 MG CHEWABLE TABLET PO SCH ×2 (09:51→20:31)
[2022-07-29] MEDS: LevETIRAcetam 500 MG TABLET PO SCH ×2 (09:51→20:31)
[2022-07-29] MEDS: SENNOSIDES 8.6 MG TABLET PO SCH ×3 (09:51→20:43)
[2022-07-29] MEDS: LEVOTHYROXINE SODIUM 75 MCG TABLET PO SCH (09:51)
[2022-07-29] MEDS: ClonazePAM 1 MG TABLET PO SCH ×2 (09:55→20:31)
[2022-07-29] MEDS: DOCUSATE SODIUM 100 MG CAPSULE PO SCH ×3 (09:55→20:43)
[2022-07-29 09:57] VITALS: BP 93/53
[2022-07-29 11:00] VITALS: BP 96/55
[2022-07-29 13:20] VITALS: BP 115/65
[2022-07-29] MEDS: SODIUM CHLORIDE 0.9% 1,000 ML IV SCH (17:40)
[2022-07-29 17:47] VITALS: BP 119/74
[2022-07-29 20:20] VITALS: BP 106/71
[2022-07-29] MEDS: ATORVASTATIN CALCIUM 20 MG TABLET PO SCH (20:31)
[2022-07-29] MEDS: ZOLPIDEM TARTRATE 5 MG TABLET PO PRN (20:31)
[2022-07-30 05:10] VITALS: BP 105/60
[2022-07-30] MEDS: LEVOTHYROXINE SODIUM 75 MCG TABLET PO SCH (05:19)
[2022-07-30] MEDS: OxyCODONE HCL/ACETAMINOPHEN 10-325 MG TABLET PO PRN ×3 (05:19→20:16)
[2022-07-30] MEDS: SODIUM CHLORIDE 0.9% 1,000 ML IV SCH (07:00)
[2022-07-30] MEDS: LevETIRAcetam 500 MG TABLET PO SCH ×2 (09:56→20:16)
[2022-07-30] MEDS: PANTOPRAZOLE SODIUM 40 MG DR TABLET PO SCH (09:57)
[2022-07-30] MEDS: APIXABAN 5 MG TABLET PO SCH ×2 (09:57→20:17)
[2022-07-30] MEDS: DOCUSATE SODIUM 100 MG CAPSULE PO SCH ×2 (09:57→20:17)
[2022-07-30] MEDS: ASPIRIN 81 MG DR TABLET PO SCH (09:57)
[2022-07-30] MEDS: SENNOSIDES 8.6 MG TABLET PO SCH ×2 (09:57→20:17)
[2022-07-30] MEDS: ClonazePAM 1 MG TABLET PO SCH ×2 (09:57→20:17)
[2022-07-30] MEDS: CarBAMazepine 100 MG CHEWABLE TABLET PO SCH ×2 (09:58→20:17)
[2022-07-30 10:02] VITALS: BP 115/74
[2022-07-30] MEDS ORDERED: INFLUENZA VIRUS VACCINE QVS 2022-23 (6MO+)/PF 60 MCG/0.5 ML SYRINGE IM. ONE (11:45)
[2022-07-30 16:13] VITALS: BP 122/76
[2022-07-30] MEDS: HYDROCODONE/ACETAMINOPHEN 5-325 MG TABLET PO PRN (17:44)
[2022-07-30] MEDS ORDERED: MAGNESIUM HYDROXIDE SUSPENSION 30 ML UDCUP PO PRN (17:45)
[2022-07-30 19:30] VITALS: BP 95/69
[2022-07-30] MEDS: ATORVASTATIN CALCIUM 20 MG TABLET PO SCH (20:17)
[2022-07-31] MEDS: OxyCODONE HCL/ACETAMINOPHEN 10-325 MG TABLET PO PRN ×5 (02:18→22:06)
[2022-07-31 04:22] VITALS: BP 113/59
[2022-07-31] MEDS: LEVOTHYROXINE SODIUM 75 MCG TABLET PO SCH (06:08)
[2022-07-31 07:47] VITALS: BP 101/65
[2022-07-31] MEDS: SENNOSIDES 8.6 MG TABLET PO SCH ×2 (08:20→20:39)
[2022-07-31] MEDS: DOCUSATE SODIUM 100 MG CAPSULE PO SCH ×2 (08:20→20:40)
[2022-07-31] MEDS: ASPIRIN 81 MG DR TABLET PO SCH (08:20)
[2022-07-31] MEDS: LevETIRAcetam 500 MG TABLET PO SCH ×2 (08:20→20:39)
[2022-07-31] MEDS: PANTOPRAZOLE SODIUM 40 MG DR TABLET PO SCH (08:20)
[2022-07-31] MEDS: APIXABAN 5 MG TABLET PO SCH ×2 (08:20→20:39)
[2022-07-31] MEDS: ClonazePAM 1 MG TABLET PO SCH ×2 (08:20→20:40)
[2022-07-31] MEDS: CarBAMazepine 100 MG CHEWABLE TABLET PO SCH ×2 (08:29→20:39)
[2022-07-31] MEDS: SODIUM CHLORIDE 0.9% 1,000 ML IV SCH (09:27)
[2022-07-31 16:19] VITALS: BP 104/60
[2022-07-31 19:52] VITALS: BP 103/66
[2022-07-31] MEDS: ATORVASTATIN CALCIUM 20 MG TABLET PO SCH (20:39)
[2022-07-31] MEDS: ZOLPIDEM TARTRATE 5 MG TABLET PO PRN (22:07)
[2022-08-01] MEDS: OxyCODONE HCL/ACETAMINOPHEN 10-325 MG TABLET PO PRN ×5 (02:00→21:49)
[2022-08-01 05:03] VITALS: BP 104/79
[2022-08-01] MEDS: LEVOTHYROXINE SODIUM 75 MCG TABLET PO SCH (06:12)
[2022-08-01] MEDS: DOCUSATE SODIUM 100 MG CAPSULE PO SCH ×2 (07:56→20:20)
[2022-08-01] MEDS: APIXABAN 5 MG TABLET PO SCH ×2 (07:56→20:21)
[2022-08-01] MEDS: ASPIRIN 81 MG DR TABLET PO SCH (07:56)
[2022-08-01] MEDS: LevETIRAcetam 500 MG TABLET PO SCH ×2 (07:56→20:20)
[2022-08-01] MEDS: PANTOPRAZOLE SODIUM 40 MG DR TABLET PO SCH (07:57)
[2022-08-01] MEDS: CarBAMazepine 100 MG CHEWABLE TABLET PO SCH ×2 (07:57→20:21)
[2022-08-01] MEDS: ClonazePAM 1 MG TABLET PO SCH ×2 (07:57→20:20)
[2022-08-01] MEDS: SENNOSIDES 8.6 MG TABLET PO SCH ×2 (07:57→20:20)
[2022-08-01] MEDS: SODIUM CHLORIDE 0.9% 1,000 ML IV SCH (11:50)
[2022-08-01 15:58] VITALS: BP 98/59
[2022-08-01] MEDS: ATORVASTATIN CALCIUM 20 MG TABLET PO SCH (20:21)
[2022-08-01 20:32] VITALS: BP 107/69
[2022-08-01] MEDS: ZOLPIDEM TARTRATE 5 MG TABLET PO PRN (21:48)
[2022-08-02] MEDS: OxyCODONE HCL/ACETAMINOPHEN 10-325 MG TABLET PO PRN ×5 (02:14→23:37)
[2022-08-02 04:54] VITALS: BP 107/66
[2022-08-02] MEDS: LEVOTHYROXINE SODIUM 75 MCG TABLET PO SCH (06:20)
[2022-08-02 08:07] VITALS: BP 106/67
[2022-08-02] MEDS: LevETIRAcetam 500 MG TABLET PO SCH ×2 (08:10→21:02)
[2022-08-02] MEDS: CarBAMazepine 100 MG CHEWABLE TABLET PO SCH ×2 (08:10→21:02)
[2022-08-02] MEDS: SENNOSIDES 8.6 MG TABLET PO SCH ×2 (08:10→21:02)
[2022-08-02] MEDS: ASPIRIN 81 MG DR TABLET PO SCH (08:10)
[2022-08-02] MEDS: APIXABAN 5 MG TABLET PO SCH ×2 (08:11→21:02)
[2022-08-02] MEDS: DOCUSATE SODIUM 100 MG CAPSULE PO SCH ×2 (08:11→21:02)
[2022-08-02] MEDS: PANTOPRAZOLE SODIUM 40 MG DR TABLET PO SCH (08:11)
[2022-08-02] MEDS: ClonazePAM 1 MG TABLET PO SCH ×2 (08:11→21:02)
[2022-08-02] MEDS: SODIUM CHLORIDE 0.9% 1,000 ML IV SCH (14:51)
[2022-08-02 16:08] VITALS: BP 99/66
[2022-08-02 20:36] VITALS: BP 109/61
[2022-08-02] MEDS: ATORVASTATIN CALCIUM 20 MG TABLET PO SCH (21:02)
[2022-08-02 23:33] VITALS: BP 106/73
[2022-08-02] MEDS: ZOLPIDEM TARTRATE 5 MG TABLET PO PRN (23:37)
[2022-08-03] MEDS: OxyCODONE HCL/ACETAMINOPHEN 10-325 MG TABLET PO PRN ×4 (03:38→22:10)
[2022-08-03] MEDS: SODIUM CHLORIDE 0.9% 1,000 ML IV SCH ×2 (04:20→17:40)
[2022-08-03 05:16] VITALS: BP 117/76
[2022-08-03] MEDS: LEVOTHYROXINE SODIUM 75 MCG TABLET PO SCH (06:04)
[2022-08-03 10:30] VITALS: BP 90/64
[2022-08-03] MEDS: CarBAMazepine 100 MG CHEWABLE TABLET PO SCH ×2 (10:32→20:13)
[2022-08-03] MEDS: APIXABAN 5 MG TABLET PO SCH ×2 (10:32→20:13)
[2022-08-03] MEDS: SENNOSIDES 8.6 MG TABLET PO SCH ×2 (10:34→20:13)
[2022-08-03] MEDS: ASPIRIN 81 MG DR TABLET PO SCH (10:34)
[2022-08-03] MEDS: LevETIRAcetam 500 MG TABLET PO SCH ×2 (10:34→20:12)
[2022-08-03] MEDS: PANTOPRAZOLE SODIUM 40 MG DR TABLET PO SCH (10:35)
[2022-08-03] MEDS: ClonazePAM 1 MG TABLET PO SCH ×2 (10:36→20:13)
[2022-08-03] MEDS: DOCUSATE SODIUM 100 MG CAPSULE PO SCH ×2 (10:36→20:13)
[2022-08-03 12:32] VITALS: BP 98/60
[2022-08-03 17:01] VITALS: BP 107/68
[2022-08-03 19:48] VITALS: BP 96/67
[2022-08-03] MEDS: ATORVASTATIN CALCIUM 20 MG TABLET PO SCH (20:13)
[2022-08-03] MEDS: ZOLPIDEM TARTRATE 5 MG TABLET PO PRN (22:10)
[2022-08-04] MEDS: OxyCODONE HCL/ACETAMINOPHEN 10-325 MG TABLET PO PRN ×4 (03:01→20:02)
[2022-08-04 03:04] VITALS: BP 116/64
[2022-08-04] MEDS: LEVOTHYROXINE SODIUM 75 MCG TABLET PO SCH (05:35)
[2022-08-04] MEDS: SODIUM CHLORIDE 0.9% 1,000 ML IV SCH ×2 (06:03→20:20)
[2022-08-04 08:16] VITALS: BP 109/61
[2022-08-04] MEDS: PANTOPRAZOLE SODIUM 40 MG DR TABLET PO SCH (10:30)
[2022-08-04] MEDS: APIXABAN 5 MG TABLET PO SCH ×2 (10:30→20:02)
[2022-08-04] MEDS: DOCUSATE SODIUM 100 MG CAPSULE PO SCH ×2 (10:30→20:03)
[2022-08-04] MEDS: SENNOSIDES 8.6 MG TABLET PO SCH ×2 (10:30→20:02)
[2022-08-04] MEDS: ClonazePAM 1 MG TABLET PO SCH ×2 (10:30→20:03)
[2022-08-04] MEDS: CarBAMazepine 100 MG CHEWABLE TABLET PO SCH ×2 (10:30→20:01)
[2022-08-04] MEDS: ASPIRIN 81 MG DR TABLET PO SCH (10:30)
[2022-08-04] MEDS: LevETIRAcetam 500 MG TABLET PO SCH ×2 (10:31→20:03)
[2022-08-04 16:02] VITALS: BP 116/67
[2022-08-04 19:54] VITALS: BP 103/71
[2022-08-04] MEDS: ATORVASTATIN CALCIUM 20 MG TABLET PO SCH (20:02)
[2022-08-04] MEDS: ZOLPIDEM TARTRATE 5 MG TABLET PO PRN (22:43)
[2022-08-05] MEDS: OxyCODONE HCL/ACETAMINOPHEN 10-325 MG TABLET PO PRN ×4 (01:59→17:31)
[2022-08-05 02:11] VITALS: BP 109/68
[2022-08-05] MEDS: LEVOTHYROXINE SODIUM 75 MCG TABLET PO SCH (06:38)
[2022-08-05] MEDS: SODIUM CHLORIDE 0.9% 1,000 ML IV SCH ×2 (09:40→22:18)
[2022-08-05 09:45] VITALS: BP 114/70
[2022-08-05] MEDS: DOCUSATE SODIUM 100 MG CAPSULE PO SCH ×2 (09:48→20:35)
[2022-08-05] MEDS: PANTOPRAZOLE SODIUM 40 MG DR TABLET PO SCH (09:48)
[2022-08-05] MEDS: ClonazePAM 1 MG TABLET PO SCH ×2 (09:48→20:35)
[2022-08-05] MEDS: SENNOSIDES 8.6 MG TABLET PO SCH ×2 (09:49→20:35)
[2022-08-05] MEDS: APIXABAN 5 MG TABLET PO SCH ×2 (09:49→20:35)
[2022-08-05] MEDS: CarBAMazepine 100 MG CHEWABLE TABLET PO SCH ×2 (09:49→20:35)
[2022-08-05] MEDS: LevETIRAcetam 500 MG TABLET PO SCH ×2 (09:49→20:35)
[2022-08-05] MEDS: ASPIRIN 81 MG DR TABLET PO SCH (09:50)
[2022-08-05] MEDS: POLYETHYLENE GLYCOL 3350 17 GM PACKET PO PRN (10:41)
[2022-08-05 15:21] VITALS: BP 110/72
[2022-08-05 19:45] VITALS: BP 103/56
[2022-08-05] MEDS: ATORVASTATIN CALCIUM 20 MG TABLET PO SCH (20:35)
[2022-08-05] MEDS: ZOLPIDEM TARTRATE 5 MG TABLET PO PRN (20:36)
[2022-08-06] MEDS: OxyCODONE HCL/ACETAMINOPHEN 10-325 MG TABLET PO PRN ×5 (00:16→22:28)
[2022-08-06 04:15] VITALS: BP 98/61
[2022-08-06] MEDS: LEVOTHYROXINE SODIUM 75 MCG TABLET PO SCH (05:47)
[2022-08-06 08:35] VITALS: BP 97/63
[2022-08-06] MEDS: PANTOPRAZOLE SODIUM 40 MG DR TABLET PO SCH (09:28)
[2022-08-06] MEDS: ASPIRIN 81 MG DR TABLET PO SCH (09:28)
[2022-08-06] MEDS: LevETIRAcetam 500 MG TABLET PO SCH ×2 (09:28→20:30)
[2022-08-06] MEDS: CarBAMazepine 100 MG CHEWABLE TABLET PO SCH ×2 (09:29→20:30)
[2022-08-06] MEDS: APIXABAN 5 MG TABLET PO SCH ×2 (09:29→20:30)
[2022-08-06] MEDS: DOCUSATE SODIUM 100 MG CAPSULE PO SCH ×2 (09:29→20:34)
[2022-08-06] MEDS: SENNOSIDES 8.6 MG TABLET PO SCH ×2 (09:29→20:35)
[2022-08-06] MEDS: ClonazePAM 1 MG TABLET PO SCH ×2 (09:29→20:30)
[2022-08-06] MEDS: SODIUM CHLORIDE 0.9% 1,000 ML IV SCH (12:20)
[2022-08-06 15:00] VITALS: BP 93/59
[2022-08-06 17:00] VITALS: BP 108/77
[2022-08-06] MEDS: BISACODYL 10 MG RECTAL RECTAL SUPPOSITORY PR PRN (17:24)
[2022-08-06] MEDS: MAGNESIUM HYDROXIDE SUSPENSION 30 ML UDCUP PO PRN (17:46)
[2022-08-06 20:24] VITALS: BP 127/86
[2022-08-06] MEDS: ATORVASTATIN CALCIUM 20 MG TABLET PO SCH (20:30)
[2022-08-06] MEDS: ZOLPIDEM TARTRATE 5 MG TABLET PO PRN (22:28)
[2022-08-07] MEDS: SODIUM CHLORIDE 0.9% 1,000 ML IV SCH ×2 (01:08→15:00)
[2022-08-07 04:37] VITALS: BP 110/62
[2022-08-07] MEDS: OxyCODONE HCL/ACETAMINOPHEN 10-325 MG TABLET PO PRN ×2 (04:40→12:25)
[2022-08-07] MEDS: LEVOTHYROXINE SODIUM 75 MCG TABLET PO SCH (05:46)
[2022-08-07] MEDS: CarBAMazepine 100 MG CHEWABLE TABLET PO SCH (08:00)
[2022-08-07] MEDS: POLYETHYLENE GLYCOL 3350 17 GM PACKET PO PRN (08:00)
[2022-08-07] MEDS: LevETIRAcetam 500 MG TABLET PO SCH (08:00)
[2022-08-07] MEDS: ASPIRIN 81 MG DR TABLET PO SCH (08:00)
[2022-08-07] MEDS: PANTOPRAZOLE SODIUM 40 MG DR TABLET PO SCH (08:00)
[2022-08-07] MEDS: SENNOSIDES 8.6 MG TABLET PO SCH (08:00)
[2022-08-07] MEDS: APIXABAN 5 MG TABLET PO SCH (08:00)
[2022-08-07] MEDS: DOCUSATE SODIUM 100 MG CAPSULE PO SCH (08:00)
[2022-08-07] MEDS: ClonazePAM 1 MG TABLET PO SCH (08:00)
[2022-08-07 08:12] VITALS: BP 126/74
[2022-08-07 12:51] LABS: COVID AG,FIA SOURCE NASAL SWAB
[2022-08-07 15:17] VITALS: BP 107/73
== END 2022-08-07 15:50 | DRG 101 ==
LOC: EMS 09:31 → 5N 18:41 → 6S 07-03 21:10
PROVIDERS: ADMIT Internal Medicine; ATTEND Internal Medicine
DX: G40.909 Epilepsy, unspecified, not intractable, without status epilepticus (principal); M62.82 Rhabdomyolysis; R65.10 Systemic inflammatory response syndrome (SIRS) of non-infectious origin without acute organ dysfunction; E44.0 Moderate protein-calorie malnutrition; N39.0 Urinary tract infection, site not specified; I82.4Z2 Acute embolism and thrombosis of unspecified deep veins of left distal lower extremity; E87.6 Hypokalemia; I44.1 Atrioventricular block, second degree; I11.9 Hypertensive heart disease without heart failure; F32.A Depression, unspecified; I25.10 Atherosclerotic heart disease of native coronary artery without angina pectoris; F41.9 Anxiety disorder, unspecified; E03.9 Hypothyroidism, unspecified; Z20.822 Contact with and (suspected) exposure to COVID-19; E78.5 Hyperlipidemia, unspecified; E78.00 Pure hypercholesterolemia, unspecified; M41.9 Scoliosis, unspecified; Z95.5 Presence of coronary angioplasty implant and graft; Z91.013 Allergy to seafood; Z86.73 Personal history of transient ischemic attack (TIA), and cerebral infarction without residual deficits; Z88.8 Allergy status to other drugs, medicaments and biological substances; Z91.041 Radiographic dye allergy status; Z91.199 Patient's noncompliance with other medical treatment and regimen due to unspecified reason; Z98.891 History of uterine scar from previous surgery; Z68.23 Body mass index [BMI] 23.0-23.9, adult
CPT/HCPCS: 70450; 70551; 71045; 72125; 80048; 80053; 80156; 81001; 81002; 82550; 83735; 83880; 84100; 84145; 84439; 84443; 84484; 85025; 87081; 87086; 87186; 92526; 92610; 93005; 93306; 93971; 97110; 97116; 97161; 97166; 97530; 97535; 99291; C9113; J0712; J1885; J2060; J2270; J3480; J7030; J7040; J7060; 36415-L1; 36415-TC